=== PATIENT | female | born 1975 | race Caucasian/White ===

== ENCOUNTER → 2018-11-19 | Outpatient (CLI) | payer BC, SELFPAY ==
--- NOTE | 2018-11-19 12:41 | BI_ITS ---
MAMMOGRAPHY - BILATERAL DIAGNOSTIC REASON FOR EXAM: Female, 42 years old. Remote left excisional breast biopsy. PERTINENT HISTORY: Aunt with breast cancer. TECHNIQUE: Digital bilateral breast ellen (3D mammographic acquisition) in the CC and MLO projections. 2-D mediolateral oblique (MLO) and craniocaudad (CC) views of both breasts were obtained. CAD: Full Field Digital Mammography with Computer Added Detection was performed. COMPARISON: Comparison is made with prior outside examination dated December 03, 2006. FINDINGS: Breast Composition: The breasts are heterogeneously dense, which may obscure small masses. There are no dominant masses or suspicious calcifications. A tissue clip marker is seen in the deep inferior slightly medial aspect of the left breast. No other significant abnormalities are identified. There has been no significant change since the prior study. BI/SCREEN MAMM (CAD) W/ELLEN BILAT IMPRESSION: Stable bilateral diagnostic mammogram. One year follow-up recommended. (A) ASSESSMENT CATEGORY: BIRADS Category 2: Benign. A letter regarding these results will be sent to the patient by the facility within 30 days. Approximately 10% of breast cancers are not detected by mammography. A normal mammogram should not delay biopsy of a clinically suspicious abnormality. Electronically Signed: Anthony Salas, at 14:35 EDT , Service support ,
== END | disposition home or self-care (01) ==
LOC: OPBI 12:38
PROVIDERS: Family Provider Internal Medicine; PCP Internal Medicine; Referring Provider Nurse Practitioner; Visit Provider Nurse Practitioner
DX: Z12.31 Encounter for screening mammogram for malignant neoplasm of breast (principal)
CPT/HCPCS: 77063; 77067

== ENCOUNTER 2021-06-16 09:45 | Outpatient (CLI) | payer SELFPAY ==
[2021-06-16 09:55] VITALS: BP 144/91; PULSE 77; RESP 16; TEMP 36.9; O2SAT 100; BMI 33.9
[2021-06-16] MEDS: 0.9% Saline Lock 10 ML Syringe IV (10:14)
[2021-06-16 10:44] VITALS: BP 127/77; PULSE 60; RESP 16; TEMP 37; O2SAT 100
[2021-06-16 11:44] VITALS: BP 127/90; PULSE 57; RESP 16; TEMP 36.9; O2SAT 99
== END 2021-06-16 11:45 | disposition home or self-care (01) ==
LOC: MS3OUT 09:46 → MS3 09:47
PROVIDERS: PCP Internal Medicine; Referring Provider Nurse Practitioner Adult Health; Visit Provider Nurse Practitioner Adult Health
DX: Z23 Encounter for immunization (principal); U07.1 COVID-19
CPT/HCPCS: J7050; M0245; Q0245; A4216

== ENCOUNTER → 2023-08-13 | Outpatient (CLI) | payer OTHER, SELFPAY ==
--- NOTE | 2023-08-13 07:03 | BI_ITS ---
MAMMOGRAPHY - BILATERAL SCREENING REASON FOR EXAM: Female, 47 years old. Routine annual screening examination. PERTINENT HISTORY: TECHNIQUE: Digital bilateral breast ellen (3D mammographic acquisition) in the CC and MLO projections. 2-D mediolateral oblique (MLO) and craniocaudad (CC) views of both breasts were obtained. CAD: Full Field Digital Mammography with Computer Added Detection was performed. COMPARISON: None. FINDINGS: Breast Composition: The breasts are extremely dense, which lowers the sensitivity of mammography. There are no dominant masses or suspicious calcifications. Indication: As was again seen in the inferior slightly medial aspect of the left breast. A tissue clip marker is also seen in the axillary region of the right breast. No other significant abnormalities are identified. There has been no significant change since the prior study. BI/SCRN MAMM (CAD)W/ELLEN BILAT IMPRESSION: Stable bilateral screening mammogram. Yearly follow-up mammogram recommended. (A) ASSESSMENT CATEGORY: BIRADS Category 2: Benign. A letter regarding these results will be sent to the patient by the facility within 30 days. Approximately 10% of breast cancers are not detected by mammography. A normal mammogram should not delay biopsy of a clinically suspicious abnormality. [id number] Electronically Signed: Anthony Salas MD at 13:47 EST ,
--- OUTSIDE RECORDS SUMMARY | 2023-08-13 07:19 | XMS RPT_ITS | CCD ---
Author Name Unknown Address [address] [place] [address] Organization [facility] Care Team Providers Care Music Box Mechanic Name Role Phone Bailey Singleton Attending Unavailable Bailey Singleton Referring Unavailable Bailey Singleton Consulting Unavailable Bailey Singleton Unavailable Matt Balderas Unavailable Unavailable Slarb, Bette Unavailable Unavailable Ciesa Bailey MCCRARY E Unavailable Lynn PIANO REFINISHER, Aleida Unavailable Unavailable Matt Meeks LPN Unavailable Unavailable Slarb PIANO REFINISHER, Bette Unavailable Unavailable Unavailable Unavailable Unavailable Primary Care Provider Unavailabl e Allergies Allergy Classification Reported Allergen(s) Allergy Type Date of Onset Reaction(s) Facility (15 sources) Dust; Translations: [Dust] allergy to substance 7 Itching [facility] Work Phone: (10 sources) Cat Propensity to adverse reactions 7 Itching [facility] Work Phone: Medications Current Medications Medication Drug Class(es) Dates Sig (Normalized) Sig (Original) levonorgestrel 0.269708 mg/hr intrauterine system (10 sources) Progestin, Progestin-containi ng Intrauterine Device Start: 11-16-2019 End: 11-14-2024 levonorgestrel (MIRENA) 20 mcg/24 hours (5 yrs) 52 mg IUD Indications: Encounter for IUD insertion 1 Each by INTRAUTERINE route as directed. 1 Each 0 11/16/2019 11/14/2024 Active Completed/Discontinued Medications Medication Drug Class(es) Dates Sig (Normalized) Sig (Original) [id number] 200 actuat albuterol 0.09 mg/actuat metered dose inhaler (14 sources) beta2-Adrenergic Agonist Start: 06-14-2021 take 2 puff(s) by inhalation three to four times daily as needed Ventolin HFA 108 (90 Base) MCG/ACT Inhalation Aerosol Solution 2 (two) Puff three to four times a day as needed for 0 days Quantity: 1 {Each} Refills: 0 Ordered: 14-Jun-2021 Matt Meeks LPN Start : 14-Jun-2021 Active Comments: Medication taken as needed. Problems Active Problems Problem Classification Problem Date Documented Da te Episodic/Chronic Administrative/social admission (5 sources) Medical examinations/repo rts status; Translations: [Patient encounter status] Resolved: 12-01-2008 05-03-2015 Episodic Disorders of lipid metabolism (4 sources) Hypercholesterole guillermo; Translations: [Hypercholesterem ia] 10-28-2018 Chronic Fever of unknown origin (10 sources) Fever; Translations: [Fever] Resolved: 12-01-2008 04-23-2017 Episodic Past or Other Problems Problem Classification Problem Date Documented Da te Episodic/Chronic Acute bronchitis (5 sources) Acute bronchitis; Translations: [Acute bronchitis] Resolved: 04-23-2017 10-22-2018 Episodic Asthma (10 sources) Asthma; Translations: [Acute exacerbation of asthma] Resolved: 04-23-2017 10-22-2018 Chronic Results Test Name Value Interpretation Reference Range Facil ity Vital Signs Date Time Vital Sign Value Performing Clinician Facility 01-05-2022 09:03-0400 Body height 167.6 cm Chintan Toledo MD Work Phone: [facility] 01-05-2022 09:03-0400 Body temperature 97 [degF] Chintan Toledo MD Work Phone: [facility] 01-05-2022 09:03-0400 Body weight 100.7 kg Chintan Toledo MD Work Phone: [facility] 01-05-2022 09:03-0400 Diastolic blood pressure 76 mm[Hg] Chintan Toledo MD Work Phone: [facility] 01-05-2022 09:03-0400 Heart rate 91 /min Chintan Toledo MD Work Phone: [facility] 01-05-2022 09:03-0400 SaO2% (BldA) [Mass fraction] 100 % Chintan Toledo MD Work Phone: [facility] 01-05-2022 09:03-0400 Systolic blood pressure 104 mm[Hg] Chintan Toledo MD Work Phone: [facility] 12-26-2021 14:22-0400 Body height 167.6 cm Chintan Toledo MD Work Phone: [facility] 12-26-2021 14:22-0400 Body temperature 99.19 [degF] Chintan Toledo MD Work Phone: [facility] 12-26-2021 14:22-0400 Body weight 103.42 kg Chintan Toledo MD Work Phone: [facility] 12-26-2021 14:22-0400 Diastolic blood pressure 80 mm[Hg] Chintan Toledo MD Work Phone: [facility] 12-26-2021 14:22-0400 Heart rate 92 /min Chintan Toledo MD Work Phone: [facility] 12-26-2021 14:22-0400 SaO2% (BldA) [Mass fraction] 100 % Chintan Toledo MD Work Phone: [facility] 12-26-2021 14:22-0400 Systolic blood pressure 121 mm[Hg] Chintan Toledo MD Work Phone: [facility] 11-17-2021 10:02-0400 Body height 167.6 cm Sonya Sequeira APRN.MACHINE PECAN PICKER Work Phone: [facility] 11-17-2021 10:02-0400 Body weight 100.7 kg Sonya Sequeira APRN.MACHINE PECAN PICKER Work Phone: [facility] 11-17-2021 10:02-0400 Diastolic blood pressure 76 mm[Hg] Sonya Sequeira APRN.MACHINE PECAN PICKER Work Phone: [facility] 11-17-2021 10:02-0400 Systolic blood pressure 118 mm[Hg] Sonya Sequeira APRN.MACHINE PECAN PICKER Work Phone: [facility] 06-13-2021 09:36-0500 Body height 168.28 cm Aleida Bailey HOWARD [facility] Work Phone: Encounters Encounter Date Encounter Type Care Provider Facility Start: 02-12-2022 Telephone encounter Rosio Lepe RN Work Phone: Mammography Procedures Date Procedure Procedure Detail Performing Clinician Start: 01-02-2022 Diagnostic mammography computer-aided detcj uni Chintan Toledo MD Work Phone: Start: 01-01-2022 US BREAST BIOPSY RIGHT (POC) SURG USE ONLY Chintan Toledo MD Work Phone: Start: 12-20-2021 Us breast uni real time with image limited Sonya Sequeira APRN.MACHINE PECAN PICKER Work Phone: Start: 12-20-2021 End: 12-20-2021 Digital breast tomosynthesis bilateral Sonya Sequeira APRN.MACHINE PECAN PICKER Work Phone: Start: 06-14-2021 End: 06-14-2021 Virtual Office Visit Comments: See Note; NOTES: [facility] [address] [place] [address] OFFICE VISIT Date of Service: 06/14/21 MR#: [id number] Acct: [id number] Patient: JESSICA ROSALES Rep #: [id number] : 1975 Provider: SLIM gutierrez Age/Sex: 45/F Location: [facility] Status: Signed Intake Intake Visit Reasons: COVID-19 Allergies No Known Allergies Allergy (Verified 06/14/21 16:18) PFSH Social History Smoking Status: Former smoker HPI HPI Details: Patient was informed that this visit will be billed to patient. This visit was conducted during COVID-19 pandemic. Statement read to the patient: This telehealth visit is being offered during our stay at home measures in response to the pandemic. It is subject to an office visit charge. There are also charges for the monoclonal antibody infusion which may or may not be covered by your insurance. The patient consents to continue. Symptom onset occurred: 06/09/21 Positive COVID-19 test occurred: 06/12/21 COVID vaccine administered: yes, Moderna on oxygen or needed to titrate up? NO COVID + test date: 06/12/21 @ [facility] Sx Onset: 06/09/21 Sx: cough, nasal and chest congestion, fever, body aches, SOB, fatigue, headache Age: 45 yrs Wt 200 Ht 5' 6 BMI 32.3 O2: No Vaccine: Moderna x2 Qualifier: Asthma with inhaler use, BMI 32,3 The FDA has authorized the emergency use of monoclonal antibody treatment (bamlanivimab/etesevimab or casirivimab/imdevimab) for mild to moderate COVID-19 in adults and pediatric patients with positive results of direct SARS-Cov-2 viral testing ages 12 and older, at least 40 kg, who are at high risk for progressing to severe COVID-19 and or hospitalization. The significant known and potential risks (allergic reactions, worsening of symptoms after treatment, or side effects from injection including brief pain, bleeding, bruising of the skin, soreness, swelling, possible infection at the infusion site) and benefits (decrease chance of progression to severe COVID-19) of a monoclonal antibody infusion, and the extent to which such potential risks and benefits are unknown. Note that worsening symptoms after treatment may occur but it is unknown whether these symptoms are related to treatment or are due to the progression of COVID-19. Worsening symptoms may include: fever, difficulty breathing, rapid or slow heart rate, tiredness, weakness or confusion. If these symptoms occur, patients are encouraged to seek immediate medical attention. These treatments are still being studied, all possible side effects may not be listed or known at this time. Patients treated with monoclonal antibody infusion should continue to self-isolate and use infection control measures (such as wear mask, isolate, social distance, avoid sharing personal items, clean and disinfect high touch surfaces, and frequent handwashing) according to the CDC guidelines. The fact sheet for patients, parents and caregivers will be provided prior to the administration of the medication. No drugs are approved by the FDA at this time to treat outpatients with mild or moderate symptoms of COVID-19. In addition to IV monoclonal antibodies, there are oral medications that have received authorization from the FDA to treat [id number]-[id number] COVID-19 in patients at high risk for progression to severe COVID-19. These medications may not be appropriate for all patients and available drug supply may be limited. However, these oral medications may be more effective against the omicron variant. The following (is following appropriate here it should it be the information contained in this documentation) information was communicated to the patient or caregiver: Monoclonal antibody infusion for COVID-19 is not an FDA approved drug. The FDA has authorized the emergency use of monoclonal antibody therapy. The patient had the option to refuse or accept treatment with monoclonal antibody therapy. The patient was informed that the number of people treated with monoclonal antibody therapy at this time is small. The potential benefits and the potential risks of monoclonal antibody therapy are not fully known. Potential benefits of monoclonal antibody include a reduced risk of progressing to severe COVID-19 infection. Potential risks or side effects of monoclonal antibody therapy include allergic reactions, side effects from injection including brief pain, bleeding, bruising of the skin, soreness, swelling, possible infection at the infusion site and worsening of symptoms. Due to the changes in the virus that causes COVID-19, some monoclonal antibody treatments may not be effective for all forms of the virus (known as variants). This includes the omicron variant. The patient stated understanding of this information communicated and wished to proceed with monoclonal antibody infusion therapy. The patient states understanding of this information communicated and wishes to proceed with monoclonal antibody infusion therapy. Patient agrees to receive either balanivimab/etesvimab or casirivimab/imdevimab upon availability. ROS Const Constitutional: Positive for body ache, fatigue, fever(s), headache(s), decreased energy and malaise ENT ENT: Positive for nasal congestion and headache(s) Resp Respiratory: Positive for cough, chest congestion and shortness of breath Neuro Neurology: Positive for headache(s) Endo Endocrine: Positive for fatigue Exam Const General: cooperative and no acute distress Resp Effort Inspection: normal respiratory effort and able to speak in complete sentences Neuro General: patient alert, patient awake and patient oriented x3 Cognition: normal cognition Speech: speech normal Psych Mental Status: mental status grossly normal Mood: congruent mood Attitude: cooperative Thought Process: normal Thought Content: normal Judgment: judgment good Details: Details:: Exam was limited due to phone visit with no video. Quality Reporting Tobacco Screening ([facility] 138) Smoking Status: Former smoker Coding Level of Care Code New Pt Level 1 Telephone Patient Type New History Problem Focused Exam Problem Focused Medical Decision Making Straight Forward Diagnoses COVID-19 U07.1 Asthma J45.909 Time Spent (min) 10 Comment 27787 Assessment and Plan Assessment and Plan (1) COVID-19: Status: Acute Plan - Deyanira Odom NP, PACKING AND STAMPING MACHINE OPERATOR-C: The patient remains appropriate for the Monoclonal Antibody Infusion. The patient states understanding of this information communicated and wishes to proceed with monoclonal antibody infusion therapy. Patient agrees to receive either balanivimab/etesvimab or casirivimab/imdevimab upon availability. Patient verbalized understanding of education and instructions. Questions and concerns were answered and addressed. (2) Asthma: Status: Acute 06/14/21 1629 <Electronically signed by Deyanira Odom NP PACKING AND STAMPING MACHINE OPERATOR-C> Date Deyanira Odom NP PACKING AND STAMPING MACHINE OPERATOR-C Cosigner Signature: Date (if applicable) CC: DO Bailey Buitrago MACHINE PECAN PICKER Work Phone: Start: 11-19-2018 End: 11-19-2018 SCREEN MAMM (CAD) W/ELLEN BILAT Comments: See Note; NOTES: [facility] Imaging Services [address] [place] [id number] SCREEN MAMM (CAD) W/ELLEN BILAT MR#: [id number] Acct: [id number] Name: JESSICA ROSALES Rep #: [id number] : 1975 F 42 From: Anthony Salas MD PCP: Lynsey Hardin DO Status: [facility] Study: SCREEN MAMM (CAD) W/ELLEN BILAT Date of Exam: 11/19/18 Exam# [id number] Ordering Dr: Bailey Singleton NP-Gloria MAMMOGRAPHY - BILATERAL DIAGNOSTIC REASON FOR EXAM: Female, 42 years old. Remote left excisional breast biopsy. PERTINENT HISTORY: Aunt with breast cancer. TECHNIQUE: Digital bilateral breast ellen (3D mammographic acquisition) in the CC and MLO projections. 2-D mediolateral oblique (MLO) and craniocaudad (CC) views of both breasts were obtained. CAD: Full Field Digital Mammography with Computer Added Detection was performed. COMPARISON: Comparison is made with prior outside examination dated December 03, 2006. FINDINGS: Breast Composition: The breasts are heterogeneously dense, which may obscure small masses. There are no dominant masses or suspicious calcifications. A tissue clip marker is seen in the deep inferior slightly medial aspect of the left breast. No other significant abnormalities are identified. There has been no significant change since the prior study. BI/SCREEN MAMM (CAD) W/ELLEN BILAT IMPRESSION: Stable bilateral diagnostic mammogram. One year follow-up recommended. (A) ASSESSMENT CATEGORY: BIRADS Category 2: Benign. A letter regarding these results will be sent to the patient by the facility within 30 days. Approximately 10% of breast cancers are not detected by mammography. A normal mammogram should not delay biopsy of a clinically suspicious abnormality. Electronically Signed: Anthony Salas, at 14:35 EDT , Service support , CC: THERON Singleton; Lynsey Hardin DO Cat Wagon Operator: Signed Bailey Singleton MACHINE PECAN PICKER Work Phone: Section - 2 Matt Balderas Section - 2 Aleida loera LPN Plan of Treatment Date Care Activity Detail Author Start: 07-06-2024 HPV TESTING HPV TESTING [facility] Start: 07-06-2024 PAP TESTING PAP TESTING [facility] Start: 12-20-2022 Mammography MAMMOGRAM [facility] Start: 02-15-2022 Influenza vaccination [facility] Start: 06-13-2021 Procedure Education Eprescribed prescriptions (G8553) [facility] Work Phone: Start: 06-12-2021 Procedure Education Eprescribed prescriptions (G8553) [facility] Work Phone: Start: 06-12-2021 Provider Instructions for Treatment Follow up tomorrow, front end technician to make virtual with [facility] tomorrow [facility] Work Phone: Start: 06-12-2021 Iaadiadoo influenza 2019 Novel Coronavirus (COVID-19), ANAND (78421) [facility] Work Phone: Start: 10-28-2018 Lipid panel LIPID PANEL (63593) [facility] Work Phone: Start: 10-22-2018 Gluc bld gluc mntr dev cleared fda spec home use Blood Glucose , Office (73191) [facility]; [facility] Work Phone: Start: 10-22-2018 Glucose mass conc [facility] Work Phone: Start: 10-22-2018 Hemoglobin A1c/Hemoglobin.total mass fraction (Bld) [facility] Work Phone: Start: 10-22-2018 Hemoglobin glycosylated a1c HgA1C , Office (63171) [facility]; [facility] Work Phone: Start: 10-22-2018 Lipid panel LIPID PANEL (41546) [facility] Work Phone: Start: 10-22-2018 Procedure Education Eprescribed prescriptions (G8553) [facility] Work Phone: Start: 10-22-2018 Provider Instructions for Treatment Follow up as needed [facility] Work Phone: Start: 2017 Mammography MAMMOGRAM [facility] Start: 04-23-2017 Procedure Education Eprescribed prescriptions (G8553) [facility] Work Phone: Start: 04-23-2017 Provider Instructions for Treatment Follow up in 1 year or as needed [facility] Work Phone: Start: 04-23-2017 Comprehensive metabolic panel Metabolic Panel, Comprehensive (04697) [facility] Work Phone: Start: 04-23-2017 Cholesterol mass conc CHOLESTEROL TOTAL, SERUM (60880) [facility] Work Phone: Start: 04-23-2017 Cholesterol serum/whole blood total CHOLESTEROL TOTAL, SERUM (48575) [facility]; [facility] Work Phone: Start: 12-07-2015 Procedure Education Eprescribed prescriptions (G8553) [facility] Work Phone: Start: 12-07-2015 Provider Instructions for Treatment Follow up if no improvement or if symptoms worsen [facility] Work Phone: Start: 12-07-2015 Lipid panel Lipid Panel (80568) [facility] Work Phone: Start: 12-07-2015 Blood count complete auto&auto difrntl wbc CBC, Platelets & Auto Diff (99668) [facility] Work Phone: Start: 12-07-2015 Comprehensive metabolic panel Metabolic Panel, Comprehensive (59827) [facility] Work Phone: Start: 03-16-2008 Skin test tuberculosis intradermal SKIN TEST INTRADERMAL TB (16949) [facility] Work Phone: Payers Date Payer Category Payer Unknown 2020 Unknown MMO MMO [employer] [id number] 2020-Present [phone] [address] [place] [address] PPO [id number] 2016 Unknown [id number] 2008 Private Health Insurance [id number] 1975 Unknown [id number] Unknown [id number] Social History Date Type Detail Facility Alcohol Use [facility] Work Phone: Medical Equipment Procedure Code Equipment Code Equipment Origin al Text Equipment Identifier Dates Stereo Breast Clip [id number] Start : 02-06-2022 Clinical Notes 10-05-2011 to 02-12-2022 Telephone Encounter - Rosio Lepe RN - 02/12/2022 3:48 PM EDTTelephone Encounter - Bailey Leonardo PIANO REFINISHER - 01/05/2022 9:39 AM EDTChintan Toledo MD - 01/05/2022 9:12 AM EDTPatient Instructions Note Date & Type Note Facility 02-12-2022 Miscellaneous Notes Called patient to notify the breast pathology results were benign per Dr. Pollock. Informed patient to continue with annual screening. Patient verbalized understanding. documented in this encounter [facility] 02-06-2022 Note HNO ID: [id number] Author: RT Enrike(R) Service: ? Author Type: Record Pressman Type: Patient Education Filed: 02/06/2022 11:45 AM Note Text: Patient given post procedure instructions [facility] 01-24-2022 Note HNO ID: [id number] Author: Park [place], [employer] Service: ? Author Type: Record Pressman Type: Patient Education Filed: 01/24/2022 10:48 AM Note Text: Written post procedure instructions were given to the patient. [facility] 01-05-2022 Note HNO ID: [id number] Author: Chintan Toledo MD Service: ? Author Type: Physician Type: Progress Notes Filed: 01/05/2022 10:01 AM Note Text: Subjective: Patient underwent an ultrasound-guided needle core biopsy of her right breast on 01/02/2022. This was done at the 12 o'clock position +10 cm. This pathology report came back as benign. When I sent her down to get her post biopsy mammogram films they said the clip was not in the right placement I then obtained an ultrasound which did show that the lesion in the ultrasound that was questionable was biopsied appropriately however she had another lesion within the mammogram itself that needed to be biopsied. Subjective:Blood pressure 104/76, pulse 91, temperature 36.1 ?C (97 ?F), height 167.6 cm (5' 6 ), weight 100.7 kg (222 lb), last menstrual period 12/27/2014, SpO2 100 %. Biopsy site is clean without signs of infection Assessment: Abnormal mammogram Plan: I am going to get her scheduled to undergo a stereotactic right breast biopsy in the near future. [facility] 01-05-2022 Miscellaneous Notes Spoke to Dr Reid office at [place] to have them call and schedule patient for a stereotactic right breast biopsy documented in this encounter [facility] 01-05-2022 History of Presen t illness Narrative Subjective: Patient underwent an ultrasound-guided needle core biopsy of her right breast on 01/02/2022. This was done at the 12 o'clock position +10 cm. This pathology report came back as benign. When I sent her down to get her post biopsy mammogram films they said the clip was not in the right placement I then obtained an ultrasound which did show that the lesion in the ultrasound that was questionable was biopsied appropriately however she had another lesion within the mammogram itself that needed to be biopsied. Subjective:Blood pressure 104/76, pulse 91, temperature 36.1 C (97 F), height 167.6 cm (5' 6 ), weight 100.7 kg (222 lb), last menstrual period 12/27/2014, SpO2 100 %. Biopsy site is clean without signs of infection Assessment: Abnormal mammogram Plan: I am going to get her scheduled to undergo a stereotactic right breast biopsy in the near future. documented in this encounter [facility] 01-03-2022 Note HNO ID: [id number] Author: RT Roselia(R) Service: ? Author Type: Record Pressman Type: Progress Notes Filed: 01/03/2022 2:43 PM Note Text: Radiology Service Progress Note PATIENT NAME: Jessica Rosales DATE OF SERVICE: January 03, 2022 TIME: 2:43 PM PATIENT IDENTITY VERIFICATION COMPLETED USING TWO (2) IDENTIFIERS: Name and Date of confirmed by patient verbally. FALL SCREENING: Has the patient had 2 falls in the last year or 1 fall with injury or currently using an Ambulatory Assistive Device (Walker, Cane, Wheelchair, Crutches, etc.)? No PATIENT GENDER DATA: Female. status: : No status: NO. PATIENT RELEVANT IMPLANT DATA REVIEWED: Not Applicable RADIOLOGY DEPARTMENT: Ultrasound PERIPHERAL IV DATA: Not applicable SIGNED BY: RT Roselia(R) January 03, 2022 2:43 PM [facility] 01-02-2022 Note HNO ID: [id number] Author: RT Quoc(Horacio) Service: ? Author Type: Technologist Type: Progress Notes Filed: 01/02/2022 7:55 AM Note Text: Radiology Service Progress Note PATIENT NAME: Jessica Rosales DATE OF SERVICE: January 02, 2022 TIME: 7:55 AM PATIENT IDENTITY VERIFICATION COMPLETED USING TWO (2) IDENTIFIERS: Name and Date of confirmed by patient verbally. FALL SCREENING: Has the patient had 2 falls in the last year or 1 fall with injury or currently using an Ambulatory Assistive Device (Walker, Cane, Wheelchair, Crutches, etc.)? No PATIENT GENDER DATA: Female. status: : No status: NO. PATIENT RELEVANT IMPLANT DATA REVIEWED: Not Applicable RADIOLOGY DEPARTMENT: Mammography PERIPHERAL IV DATA: Not applicable SIGNED BY: RT Quoc(R) January 02, 2022 7:55 AM [facility] 01-02-2022 History of Presen t illness Narrative Radiology Service Progress Note PATIENT NAME: Jessica Rosales DATE OF SERVICE: January 02, 2022 TIME: 7:55 AM PATIENT IDENTITY VERIFICATION COMPLETED USING TWO (2) IDENTIFIERS: Name and Date of confirmed by patient verbally. FALL SCREENING: Has the patient had 2 falls in the last year or 1 fall with injury or currently using an Ambulatory Assistive Device (Walker, Cane, Wheelchair, Crutches, etc.)? No PATIENT GENDER DATA: Female. status: : No status: NO. PATIENT RELEVANT IMPLANT DATA REVIEWED: Not Applicable RADIOLOGY DEPARTMENT: Mammography PERIPHERAL IV DATA: Not applicable SIGNED BY: RT Quoc(R) January 02, 2022 7:55 AM documented in this encounter [facility] 01-01-2022 Note HNO ID: [id number] Author: Chintan Toledo MD Service: ? Author Type: Physician Type: Progress Notes Filed: 01/02/2022 1:57 PM Note Text: Preoperative diagnosis: Abnormal mammogram to right breast Postoperative diagnosis: The same Procedure: Ultrasound-guided needle core biopsy of abnormal mammogram to right breast Surgeon: Tre Procedure: Ultrasound of the right breast at the 12 o'clock position approximately 10 cm from the nipple revealed the lesion in question. I prepped the skin with Betadine. I injected 1% lidocaine plain. Under ultrasound guidance I injected local down to the lesion. A skin graham was made. Under ultrasound guidance 2 needle core biopsies were obtained of this lesion. Under ultrasound guidance a small titanium clip was placed in the biopsy cavity. Sterile dressings were applied and the patient tolerated the procedure well postoperative mammogram was obtained. [facility] 01-01-2022 Note HNO ID: [id number] Author: Bailey Leonardo LPN Service: ? Author Type: LICENSED NURSE Type: Progress Notes Filed: 01/02/2022 1:57 PM Note Text: UNIVERSAL PROTOCOL / SAFETY CHECKLIST Procedure to be Performed: Ultra sound guided right breast biopsy Sign In: A Moment of CARE was completed. Personnel directly involved with the procedure wore the appropriate PPE (Personal Protective Equipment). Patient/Surrogate Stated/Verified: PATIENT VERIFIED(optional for EMERGENT procedures): Patient name, Date of , Relevant allergies and The intended procedure Time Out Communication: Intended patient and procedure match the source documents. Consent documented and matches the intended procedure. Medications required for procedure verified. No fire risk assessment and interventions applicable. Implant(s) inserted: Correct implant(s) confirmed including size and side. and Expiration date(s) reviewed. Sign Out: SIGN OUT (optional for EMERGENT procedures): All specimen containers correctly labeled. Post-procedure follow-up management communicated and Plan of Care Visit completed when applicable. Bailey Leonardo LPN [facility] 01-01-2022 Instructions Bailey Leonardo LPN - 01/01/2022 4:13 PM EDT The following instructions are important for you related to your office visit today with the [facility]. Instructions After OFFICE BASED BREAST BIOPSY Please do not take aspirin or other blood thinners for the next few days. After the procedure, Steri-Strips and a dressing will be placed on your small incision. The dressing may be removed in two to three days after the procedure. The Steri-Strips should be left in place until they fall off. If you have bleeding from the biopsy site, hold pressure with a clean gauze. If the bleeding continues, contact our office immediately. I recommend taking Advil or Tylenol for the discomfort. You should wear a comfortable but somewhat tight fitting bra. If you have significant bruising, an ice pack may improve your discomfort. Dr Toledo to call patient with results If you note any additional difficulties, questions, or concerns, you should contact our office immediately @ [phone] and ask to be transferred to the General Surgery department. documented in this encounter [facility] 01-01-2022 History of Presen t illness Narrative Preoperative diagnosis: Abnormal mammogram to right breast Postoperative diagnosis: The same Procedure: Ultrasound-guided needle core biopsy of abnormal mammogram to right breast Surgeon: Tre Procedure: Ultrasound of the right breast at the 12 o'clock position approximately 10 cm from the nipple revealed the lesion in question. I prepped the skin with Betadine. I injected 1% lidocaine plain. Under ultrasound guidance I injected local down to the lesion. A skin graham was made. Under ultrasound guidance 2 needle core biopsies were obtained of this lesion. Under ultrasound guidance a small titanium clip was placed in the biopsy cavity. Sterile dressings were applied and the patient tolerated the procedure well postoperative mammogram was obtained. UNIVERSAL PROTOCOL / SAFETY CHECKLIST Procedure to be Performed: Ultra sound guided right breast biopsy Sign In: A Moment of CARE was completed. Personnel directly involved with the procedure wore the appropriate PPE (Personal Protective Equipment). Patient/Surrogate Stated/Verified: PATIENT VERIFIED(optional for EMERGENT procedures): Patient name, Date of , Relevant allergies and The intended procedure Time Out Communication: Intended patient and procedure match the source documents. Consent documented and matches the intended procedure. Medications required for procedure verified. No fire risk assessment and interventions applicable. Implant(s) inserted: Correct implant(s) confirmed including size and side. and Expiration date(s) reviewed. Sign Out: SIGN OUT (optional for EMERGENT procedures): All specimen containers correctly labeled. Post-procedure follow-up management communicated and Plan of Care Visit completed when applicable. Bailey Leonardo LPN documented in this encounter [facility] 12-26-2021 Note HNO ID: [id number] Author: Chintan Toledo MD Service: ? Author Type: Physician Type: Progress Notes Filed: 12/26/2021 2:42 PM Note Text: HISTORY AND PHYSICAL - BREAST COMPLAINT Jessica Tanner 1975 REFERRING PHYSICIAN: Sonya Sequeira APRN.MACHINE PECAN PICKER CHIEF COMPLAINT: Abnormal mammogram (primary encounter diagnosis) HPI: The patient is a 46 year old female with a complaint of an abnormal mammogram. The patient had a mammogram with ultrasound on 12/20/20 which demonstrated a right breast lesion at the 12 o'clock position +10.: The patient denies a history of breast masses. She does perform a self breast exam routinely. She notes no skin changes. She denies nipple discharge. She notes no axillary masses. She notes no family history of breast problems. She notes no significant breast trauma or breast difficulties in the past. The patient is being seen by me today at the request of Dr. Sequeira for my opinion and advice regarding Abnormal mammogram (primary encounter diagnosis). PAST MEDICAL HISTORY Diagnosis Date - Argueta's palsy 1992 - Unspecified asthma(493.90) PAST SURGICAL HISTORY Procedure Laterality Date - DELIVERY ONLY 2011 , low transverse - INSERTION OF IUD 11/16/2019 - STEREOTACTIC CORE BIOPSY 12/25/06 LEFT Current Outpatient Medications Medication Sig Dispense Refill - levonorgestrel (MIRENA) 20 mcg/24 hours (5 yrs) 52 mg IUD 1 Each by INTRAUTERINE route as directed. 1 Each 0 - MULTIVITAMIN ORAL Take by mouth. No current facility-administered medications for this visit. ALLERGIES: Cats and Dust PERSONAL HISTORY: Social History Tobacco Use - Smoking status: Never Smoker - Smokeless tobacco: Never Used Vaping Use - Vaping Use: Never used Substance Use Topics - Alcohol use: No - Drug use: No FAMILY HISTORY: FAMILY HISTORY Problem Relation Age of Onset - Hypertension Mother - Asthma Mother - other (Other) Mother kidney stones - COPD Mother former smoker - Hyperlipidemia Mother - Alcohol/Drug Father ETOH in remission - Arthritis Father - Stroke Maternal Grandmother - Emphysema Maternal Grandfather smoker - Colon Cancer Other MGAUNT REVIEW OF SYMPTOMS: The review of systems data was entered by the nurse and reviewed by dc Nursing Notes: Carri Syed 12/26/2021 2:27 PM Signed REVIEW OF SYSTEMS: General: The patient denies fatigue, denies weight loss, NOTES weight gain, denies feeling hot, and denies feelings of cold. Eyes: The patient denies glaucoma, denies eye injury/surgery, wears glasses or contacts. Ear/Nose/Throat: The patient NOTES allergies, NOTES hayfever, denies ear infections, and denies bloody noses. Cardiovascular: The patient denies chest pain, denies heart disease, denies high blood pressure,denies cardiac stent, denies prior heart attack, denies irregular heart beat, denies high cholesterol, denies poor circulation, denies heart failure, other cardiac issues, denies claudication, denies cold feet, denies peripheral arterial stent. Respiratory: The patient denies tuberculosis, denies pneumonia, denies frequent cough, denies pulmonary embolism, denies shortness of breath, and denies coughing up blood. Gastrointestinal: The patient denies difficulty swallowing, denies acid reflux, denies ulcers, denies vomiting, denies jaundice/hepatitis, denies gallbladder problems, denies black or tarry stools, denies hemorrhoids, denies bleeding from rectum, denies diverticulitis, NOTES constipation, denies diarrhea, denies loss of stool control, and denies hernias. Kidney/Bladder: The patient denies kidney stones, denies urine infections, and denies bloody urine. Skin: The patient denies a history of skin cancer, denies bleeding/changing moles, and denies a history of skin rash. Neurologic: The patient denies a history of epilepsy/convulsions, denies headaches, denies head/spinal injuries, and denies stroke/TIA. Psychiatric: The patient denies psychiatric medications, denies depression, and denies voices, denies substance abuse. Endocrine: The patient denies thyroid disorders, denies diabetes, and denies hormonal problems. Hematologic: The patient denies a history of bruising, denies bleeding, and denies anemia, denies blood clots. Infections: The patient NOTES a history of measles and mumps, denies rheumatic fever, and denies sexually transmitted diseases. Musculoskeletal: The patient denies back pain/injury, denies back problems, denies sciatica, denies knee/foot trouble, denies arthritis, or denies gout. When was patient's last Mammogram screening? 12/20/2021 Last Colonoscopy: None Carri Syed PHYSICAL EXAMINATION: General: The patient is 46 year old female, well nourished, well hydrated in no acute distress. The patient is oriented to time, place, and person. VITALS: Blood pressure 121/80, pulse 92, temperature 37.3 ?C (99.2 ?F), height 167.6 cm (5' 6 ), weight 103.4 kg (more content not included)... [facility] 12-26-2021 History of Presen t illness Narrative HISTORY AND PHYSICAL - BREAST COMPLAINT Jessica Tanner 1975 REFERRING PHYSICIAN: Sonya Sequeira APRN.MACHINE PEC[employer] PICKER CHIEF COMPLAINT: Abnormal mammogram (primary encounter diagnosis) HPI: The patient is a 46 year old female with a complaint of an abnormal mammogram. The patient had a mammogram with ultrasound on 12/20/20 which demonstrated a right breast lesion at the 12 o'clock position +10.: The patient denies a history of breast masses. She does perform a self breast exam routinely. She notes no skin changes. She denies nipple discharge. She notes no axillary masses. She notes no family history of breast problems. She notes no significant breast trauma or breast difficulties in the past. The patient is being seen by me today at the request of Dr. Sequeira for my opinion and advice regarding Abnormal mammogram (primary encounter diagnosis). PAST MEDICAL HISTORY Diagnosis Date Argueta's palsy 1992 Unspecified asthma(493.90) PAST SURGICAL HISTORY Procedure Laterality Date DELIVERY ONLY 2011 , low transverse INSERTION OF IUD 11/16/2019 STEREOTACTIC CORE BIOPSY 12/25/06 LEFT Current Outpatient Medications Medication Sig Dispense Refill levonorgestrel (MIRENA) 20 mcg/24 hours (5 yrs) 52 mg IUD 1 Each by INTRAUTERINE route as directed. 1 Each 0 MULTIVITAMIN ORAL Take by mouth. No current facility-administered medications for this visit. ALLERGIES: Cats and Dust PERSONAL HISTORY: Social History Tobacco Use Smoking status: Never Smoker Smokeless tobacco: Never Used Vaping Use Vaping Use: Never used Substance Use Topics Alcohol use: No Drug use: No FAMILY HISTORY: FAMILY HISTORY Problem Relation Age of Onset Hypertension Mother Asthma Mother other (Other) Mother kidney stones COPD Mother former smoker Hyperlipidemia Mother Alcohol/Drug Father ETOH in remission Arthritis Father Stroke Maternal Grandmother Emphysema Maternal Grandfather smoker Colon Cancer Other MGAUNT REVIEW OF SYMPTOMS: The review of systems data was entered by the nurse and reviewed by dc Nursing Notes: Carri Syed 12/26/2021 2:27 PM Signed REVIEW OF SYSTEMS: General: The patient denies fatigue, denies weight loss, NOTES weight gain, denies feeling hot, and denies feelings of cold. Eyes: The patient denies glaucoma, denies eye injury/surgery, wears glasses or contacts. Ear/Nose/Throat: The patient NOTES allergies, NOTES hayfever, denies ear infections, and denies bloody noses. Cardiovascular: The patient denies chest pain, denies heart disease, denies high blood pressure,denies cardiac stent, denies prior heart attack, denies irregular heart beat, denies high cholesterol, denies poor circulation, denies heart failure, other cardiac issues, denies claudication, denies cold feet, denies peripheral arterial stent. Respiratory: The patient denies tuberculosis, denies pneumonia, denies frequent cough, denies pulmonary embolism, denies shortness of breath, and denies coughing up blood. Gastrointestinal: The patient denies difficulty swallowing, denies acid reflux, denies ulcers, denies vomiting, denies jaundice/hepatitis, denies gallbladder problems, denies black or tarry stools, denies hemorrhoids, denies bleeding from rectum, denies diverticulitis, NOTES constipation, denies diarrhea, denies loss of stool control, and denies hernias. Kidney/Bladder: The patient denies kidney stones, denies urine infections, and denies bloody urine. Skin: The patient denies a history of skin cancer, denies bleeding/changing moles, and denies a history of skin rash. Neurologic: The patient denies a history of epilepsy/convulsions, denies headaches, denies head/spinal injuries, and denies stroke/TIA. Psychiatric: The patient denies psychiatric medications, denies depression, and denies voices, denies substance abuse. Endocrine: The patient denies thyroid disorders, denies diabetes, and denies hormonal problems. Hematologic: The patient denies a history of bruising, denies bleeding, and denies anemia, denies blood clots. Infections: The patient NOTES a history of measles and mumps, denies rheumatic fever, and denies sexually transmitted diseases. Musculoskeletal: The patient denies back pain/injury, denies back problems, denies sciatica, denies knee/foot trouble, denies arthritis, or denies gout. When was patient's last Mammogram screening? 12/20/2021 Last Colonoscopy: None Carri Syed PHYSICAL EXAMINATION: General: The patient is 46 year old female, well nourished, well hydrated in no acute distress. The patient is oriented to time, place, and person. VITALS: Blood pressure 121/80, pulse 92, temperature 37.3 C (99.2 F), height 167.6 cm (5' 6 ), weight 103.4 kg (228 lb), last menstrual period 12/27/2014, SpO2 100 %. Body mass index is 36.8 kg/m . HEENT: Normal cephalic, ataumatic, pupils are equally round, sclera are anicteric, mucous membranes are moist, oropharynx is clear. Neck has no masses, asymmetry or lymphadenopathy. Thyroid is unremarkable. Respiratory: Clear to auscultation and percussion. Normal respiratory excursion and pattern. Cardiac: Examination is regular rate and rhythm. Abdominal exam: Soft, nontender, with no palpable masses. No hepatosplenomegaly. No palpable hernias. Rectal exam: exam deferred Extremities: no clubbing, cyanosis or edema. No adenopathy. Breast: Visual inspection reveals no retractions, nipple inversion, or skin changes. Palpation of the right breast reveals no dominant or suspicious masses. Palpation of the left breast reveals no dominant or suspicious masses. Axillary exam demonstrates no suspicious masses in either the left or right axilla. There is no nipple discharge expressed from either the left or right breast. LABORATORY VALUES: As Noted RADIOLOGIC STUDIES: As Noted Assessment IMPRESSION: Abnormal mammogram (primary encounter diagnosis) PLAN: I plan to perform a ultrasound guided core biopsy of the right breast. The planned surgical procedure was discussed extensively with the patient. The risks, benefits, anticipated outcomes and possible complications were mentioned. My staff has also explained the procedure in understandable terms and the patient was given the option to take printed material concerning the planned procedure. The patient had the opportunity to ask questions concerning the planned procedure. The patient freely consents to the planned procedure. Diagnoses: (R92.8) Abnormal mammogram (primary encounter diagnosis) My findings have been communicated to Dr. Sequeira via shared medical record. This note will be forwarded to Dr. Yeboah primary care provider on file.. Return to Clinic: The patient is instructed to follow-up with me 1 week post operatively. Chintan Toledo III, MD documented in this encounter [facility] 12-26-2021 Nurse Note REVIEW OF SYSTEMS: General: The patient denies fatigue, denies weight loss, NOTES weight gain, denies feeling hot, and denies feelings of cold. Eyes: The patient denies glaucoma, denies eye injury/surgery, wears glasses or contacts. Ear/Nose/Throat: The patient NOTES allergies, NOTES hayfever, denies ear infections, and denies bloody noses. Cardiovascular: The patient denies chest pain, denies heart disease, denies high blood pressure,denies cardiac stent, denies prior heart attack, denies irregular heart beat, denies high cholesterol, denies poor circulation, denies heart failure, other cardiac issues, denies claudication, denies cold feet, denies peripheral arterial stent. Respiratory: The patient denies tuberculosis, denies pneumonia, denies frequent cough, denies pulmonary embolism, denies shortness of breath, and denies coughing up blood. Gastrointestinal: The patient denies difficulty swallowing, denies acid reflux, denies ulcers, denies vomiting, denies jaundice/hepatitis, denies gallbladder problems, denies black or tarry stools, denies hemorrhoids, denies bleeding from rectum, denies diverticulitis, NOTES constipation, denies diarrhea, denies loss of stool control, and denies hernias. Kidney/Bladder: The patient denies kidney stones, denies urine infections, and denies bloody urine. Skin: The patient denies a history of skin cancer, denies bleeding/changing moles, and denies a history of skin rash. Neurologic: The patient denies a history of epilepsy/convulsions, denies headaches, denies head/spinal injuries, and denies stroke/TIA. Psychiatric: The patient denies psychiatric medications, denies depression, and denies voices, denies substance abuse. Endocrine: The patient denies thyroid disorders, denies diabetes, and denies hormonal problems. Hematologic: The patient denies a history of bruising, denies bleeding, and denies anemia, denies blood clots. Infections: The patient NOTES a history of measles and mumps, denies rheumatic fever, and denies sexually transmitted diseases. Musculoskeletal: The patient denies back pain/injury, denies back problems, denies sciatica, denies knee/foot trouble, denies arthritis, or denies gout. When was patient's last Mammogram screening? 12/20/2021 Last Colonoscopy: None Carri Syed documented in this encounter [facility] 12-20-2021 Note HNO ID: [id number] Author: RT Roselia(R) Service: ? Author Type: Record Pressman Type: Progress Notes Filed: 12/20/2021 3:00 PM Note Text: Radiology Service Progress Note PATIENT NAME: Jessica Rosales DATE OF SERVICE: December 20, 2021 TIME: 3:00 PM PATIENT IDENTITY VERIFICATION COMPLETED USING TWO (2) IDENTIFIERS: Name and Date of confirmed by patient verbally. FALL SCREENING: Has the patient had 2 falls in the last year or 1 fall with injury or currently using an Ambulatory Assistive Device (Walker, Cane, Wheelchair, Crutches, etc.)? No PATIENT GENDER DATA: Female. status: : No status: NO. PATIENT RELEVANT IMPLANT DATA REVIEWED: Not Applicable RADIOLOGY DEPARTMENT: Ultrasound PERIPHERAL IV DATA: Not applicable SIGNED BY: RT Roselia(R) December 20, 2021 3:00 PM [facility] 12-20-2021 Note HNO ID: [id number] Author: Jose Hilario Service: ? Author Type: Record Pressman Type: Progress Notes Filed: 12/20/2021 1:43 PM Note Text: [facility] 12-20-2021 History of Presen t illness Narrative Radiology Service Progress Note PATIENT NAME: Jessica Rosales DATE OF SERVICE: December 20, 2021 TIME: 3:00 PM PATIENT IDENTITY VERIFICATION COMPLETED USING TWO (2) IDENTIFIERS: Name and Date of confirmed by patient verbally. FALL SCREENING: Has the patient had 2 falls in the last year or 1 fall with injury or currently using an Ambulatory Assistive Device (Walker, Cane, Wheelchair, Crutches, etc.)? No PATIENT GENDER DATA: Female. status: : No status: NO. PATIENT RELEVANT IMPLANT DATA REVIEWED: Not Applicable RADIOLOGY DEPARTMENT: Ultrasound PERIPHERAL IV DATA: Not applicable SIGNED BY: RT Roselia(R) December 20, 2021 3:00 PM documented in this encounter [facility] 12-20-2021 History of Presen t illness Narrative documented in this encounter [facility] 11-17-2021 Note HNO ID: [id number] Author: Sonya Sequeira APRN.MACHINE PECAN PICKER Service: ? Author Type: Nurse Practitioner Type: Progress Notes Filed: 11/17/2021 10:49 AM Note Text: Jessica is a 45 year old who presents for an annual gynecologic exam with complaints, left breast pain. Pain for at least a week. Pain intermittent and feels like a pulled muscle. Did sleep in very uncomfortable bed for 3-4 days prior to onset of pain.No skin changes, no lump, no redness or nipple discharge. Does not drink caffeine. Has not changed bras and does not wear under wire. [facility] and [facility]. Maternal aunt with breast cancer diagnosed age 60. Menses: no menses - Mirena IUD. Contraception: Mirena IUD 11/16/2019 HPV vaccine: No Last Pap: 07/08/2019 normal HPV: 07/08/2019 negative History of abnormal pap: No Last mammogram: 2019 normal [facility] Sexually active: Yes History of STDS: None Patient concerns for STD exposure: No. Time with current partner: 21 years Pain with intercourse: No Postcoital bleeding: No OB History T2 L2 SAB0 IAB0 Ectopic0 Multiple0 Live Births2 Financial Sales Consult[employer] History LMP: 12/27/2014, IUD Age at Menarche: Age at First : Age at Menopause: Financial Sales Consultant History Comments: Sexual Activity: Yes; Male Contraception: I.U.D. PAST MEDICAL HISTORY Diagnosis Date - Argueta's palsy 1992 - Unspecified asthma(493.90) PAST SURGICAL HISTORY Procedure Laterality Date - DELIVERY ONLY 2011 , low transverse - INSERTION OF IUD 11/16/2019 - STEREOTACTIC CORE BIOPSY 12/25/06 LEFT FAMILY HISTORY Problem Relation Age of Onset - Hypertension Mother - Asthma Mother - other (Other) Mother kidney stones - Alcohol/Drug Father ETOH - Arthritis Father - Stroke Maternal Grandmother - Emphysema Maternal Grandfather - Colon Cancer Other MGAUNT SOCIAL HISTORY Social History Tobacco Use - Smoking status: Never Smoker - Smokeless tobacco: Never Used Vaping Use - Vaping Use: Never used Substance Use Topics - Alcohol use: No - Drug use: No REVIEW OF SYSTEMS Abdomen: No abdominal pain, nausea, vomiting, diarrhea, or constipation. No bloating, early satiety, indigestion, or increased flatulence. Bladder: No dysuria, gross hematuria, urinary frequency, urinary urgency, or incontinence. Breast: see HPI. No breast lumps, nipple d/c, overlying skin changes, redness or skin retraction. Allergies and current medication updated:Yes EXAM: BP 118/76 Ht 5' 6 (1.68m) Wt 222 lb (100.7kg) LMP 12/27/2014 BMI 35.85 kg/(m2). GENERAL: pleasant, female in no apparent distress HEENT: Normocephalic, atraumatic, mucus membranes moist and no lesions NECK: Supple, full range of motion, no adenopathy and thyroid normal DERMATOLOGY: Normal, without lesions, non-icteric and non-hirsute BREAST: soft, symmetric, no dominant mass, normal nipple-areolar complex, no lymphadenopathy, no nipple discharge . Tenderness with palpation to outer left breast. CHEST: Normal inspiratory effort ABDOMEN: soft, non-tender and no masses PELVIC: external genitalia normal, normal Bartholin's glands, urethra, Inland's glands, no vulvar lesions, no cervical lesions, good vaginal support, physiologic discharge present, normal appearing perineal body and perianal region, IUD strings visualized BIMANUAL: uterus normal size, shape and consistency, no adnexal masses and non-tender RECTOVAGINAL: deferred. NEURO: alert and oriented x3,exam grossly non-focal EXTREMITIES: mild non-pitting edema bilaterally L>R. Does have intermittent pedal edema as does mother and sisters. ASSESSMENT/PLAN: 1) Health maintenance: Pap done with HPV. Nutrition, exercise and routine health maintenance exams reviewed. Calcium/Vitamin D supplementation information provided. Pedal edema - plans to discuss with PCP 2. Pain of left breast - ICD9: 611.71, ICD10: N64.4 - US BREAST LTD LT - KATHERINE DIAGNOSTIC BILAT 3) Contraception: IUD. Contraceptive options reviewed and information provided. 4) STD screening: Declined STD check. 5) Follow up one year or sooner as needed Sonya Sequeira APRN.[facility] 11-17-2021 History of Presen t illness Narrative Jessica is a 45 year old who presents for an annual gynecologic exam with complaints, left breast pain. Pain for at least a week. Pain intermittent and feels like a pulled muscle. Did sleep in very uncomfortable bed for 3-4 days prior to onset of pain.No skin changes, no lump, no redness or nipple discharge. Does not drink caffeine. Has not changed bras and does not wear under wire. [facility] and [facility]. Maternal aunt with breast cancer diagnosed age 60. Menses: no menses - Mirena IUD. Contraception: Mirena IUD 11/16/2019 HPV vaccine: No Last Pap: 07/08/2019 normal HPV: 07/08/2019 negative History of abnormal pap: No Last mammogram: 2019 normal H Sexually active: Yes History of STDS: None Patient concerns for STD exposure: No. Time with current partner: 21 years Pain with intercourse: No Postcoital bleeding: No OB History T2 L2 SAB0 IAB0 Ectopic0 Multiple0 Live Births2 Financial Sales Consultant History LMP: 12/27/2014, IUD Age at Menarche: Age at First : Age at Menopause: Financial Sales Consultant History Comments: Sexual Activity: Yes; Male Contraception: I.U.D. PAST MEDICAL HISTORY Diagnosis Date Argueta's palsy 1992 Unspecified asthma(493.90) PAST SURGICAL HISTORY Procedure Laterality Date DELIVERY ONLY 2011 , low transverse INSERTION OF IUD 11/16/2019 STEREOTACTIC CORE BIOPSY 12/25/06 LEFT FAMILY HISTORY Problem Relation Age of Onset Hypertension Mother Asthma Mother other (Other) Mother kidney stones Alcohol/Drug Father ETOH Arthritis Father Stroke Maternal Grandmother Emphysema Maternal Grandfather Colon Cancer Other [place] SOCIAL HISTORY Social History Tobacco Use Smoking status: Never Smoker Smokeless tobacco: Never Used Vaping Use Vaping Use: Never used Substance Use Topics Alcohol use: No Drug use: No REVIEW OF SYSTEMS Abdomen: No abdominal pain, nausea, vomiting, diarrhea, or constipation. No bloating, early satiety, indigestion, or increased flatulence. Bladder: No dysuria, gross hematuria, urinary frequency, urinary urgency, or incontinence. Breast: see HPI. No breast lumps, nipple d/c, overlying skin changes, redness or skin retraction. Allergies and current medication updated:Yes EXAM: BP 118/76 Ht 5' 6 (1.68m) Wt 222 lb (100.7kg) LMP 12/27/2014 BMI 35.85 kg/(m^2). GENERAL: pleasant, female in no apparent distress HEENT: Normocephalic, atraumatic, mucus membranes moist and no lesions NECK: Supple, full range of motion, no adenopathy and thyroid normal DERMATOLOGY: Normal, without lesions, non-icteric and non-hirsute BREAST: soft, symmetric, no dominant mass, normal nipple-areolar complex, no lymphadenopathy, no nipple discharge . Tenderness with palpation to outer left breast. CHEST: Normal inspiratory effort ABDOMEN: soft, non-tender and no masses PELVIC: external genitalia normal, normal Bartholin's glands, urethra, Inland's glands, no vulvar lesions, no cervical lesions, good vaginal support, physiologic discharge present, normal appearing perineal body and perianal region, IUD strings visualized BIMANUAL: uterus normal size, shape and consistency, no adnexal masses and non-tender RECTOVAGINAL: deferred. NEURO: alert and oriented x3,exam grossly non-focal EXTREMITIES: mild non-pitting edema bilaterally L>R. Does have intermittent pedal edema as does mother and sisters. ASSESSMENT/PLAN: 1) Health maintenance: Pap done with HPV. Nutrition, exercise and routine health maintenance exams reviewed. Calcium/Vitamin D supplementation information provided. Pedal edema - plans to discuss with PCP 2. Pain of left breast - ICD9: 611.71, ICD10: N64.4 - US BREAST LTD LT - KATHERINE DIAGNOSTIC BILAT 3) Contraception: IUD. Contraceptive options reviewed and information provided. 4) STD screening: Declined STD check. 5) Follow up one year or sooner as needed Sonya Sequeira APRN.[facility] documented in this encounter [facility] documented as of this encounter (statuses as of 11/17/2021) [facility]20[facility] History of Past illness Narrative* Problem Noted Date Resolved Date Supervision of normal 10/05/2011 02/15/2012 Cervical polyp 10/05/2011 01/06/2015 Overview: RR- caused first trimester bleeding. No bleeding recently Previous section 07/13/20112011 Supervision of normal first 02/27/2007 10/27/2007 documented as of this encounter (statuses as of 12/21/2021) [facility] History of Past illness Narrative* Problem Noted Date Resolved Date Supervision of normal 10/05/2011 02/15/2012 Cervical polyp 10/05/2011 01/06/2015 Overview: RR- caused first trimester bleeding. No bleeding recently Previous section 07/13/20112011 Supervision of normal first 02/27/2007 10/27/2007 documented as of this encounter (statuses as of 12/21/2021) [address]20-2012 History of Past illness Narrative* Problem Noted Date Resolved Date Supervision of normal 10/05/2011 02/15/2012 Cervical polyp 10/05/2011 01/06/2015 Overview: RR- caused first trimester bleeding. No bleeding recently Previous section 07/13/20112011 Supervision of normal first 02/27/2007 10/27/2007 documented as of this encounter (statuses as of 12/26/2021) [address]20-2012 History of Past illness Narrative* Problem Noted Date Resolved Date Supervision of normal 10/05/2011 02/15/2012 Cervical polyp 10/05/2011 01/06/2015 Overview: RR- caused first trimester bleeding. No bleeding recently Previous section 07/13/20112011 Supervision of normal first 02/27/2007 10/27/2007 documented as of this encounter (statuses as of 01/02/2022) [address]20-2012 History of Past illness Narrative* Problem Noted Date Resolved Date Supervision of normal 10/05/2011 02/15/2012 Cervical polyp 10/05/2011 01/06/2015 Overview: RR- caused first trimester bleeding. No bleeding recently Previous section 07/13/20112011 Supervision of normal first 02/27/2007 10/27/2007 documented as of this encounter (statuses as of 01/03/2022) [address]20-2012 History of Past illness Narrative* Problem Noted Date Resolved Date Supervision of normal 10/05/2011 02/15/2012 Cervical polyp 10/05/2011 01/06/2015 Overview: RR- caused first trimester bleeding. No bleeding recently Previous section 07/13/20112011 Supervision of normal first 02/27/2007 10/27/2007 documented as of this encounter (statuses as of 01/05/2022) [address]20-2012 History of Past illness Narrative* Problem Noted Date Resolved Date Supervision of normal 10/05/2011 02/15/2012 Cervical polyp 10/05/2011 01/06/2015 Overview: RR- caused first trimester bleeding. No bleeding recently Previous section 07/13/20112011 Supervision of normal first 02/27/2007 10/27/2007 documented as of this encounter (statuses as of 01/05/2022) [address]20-2012 History of Past illness Narrative* Problem Noted Date Resolved Date Supervision of normal 10/05/2011 02/15/2012 Cervical polyp 10/05/2011 01/06/2015 Overview: RR- caused first trimester bleeding. No bleeding recently Previous section 07/13/20112011 Supervision of normal first 02/27/2007 10/27/2007 documented as of this encounter (statuses as of 01/24/2022) [address]20-2012 History of Past illness Narrative* Problem Noted Date Resolved Date Supervision of normal 10/05/2011 02/15/2012 Cervical polyp 10/05/2011 01/06/2015 Overview: RR- caused first trimester bleeding. No bleeding recently Previous section 07/13/20112011 Supervision of normal first 02/27/2007 10/27/2007 documented as of this encounter (statuses as of 02/12/2022) [facility] Diagnosis Encounter for gynecological examination with abnormal finding- Primary Routine gynecological examination Pain of left breast [facility]- Primary Abnormal mammogram, unspecified [facility] Diagnosis Abnormal [facility]- Primary Abnormal mammogram, unspecified [facility] Diagnosis Abnormal [facility]ogram Abnormal mammogram, unspecified [facility] Abnormal [facility]ogram- Primary Abnormal mammogram, unspecified [facility] Diagnosis Abnormal finding on breast imaging- Primary Other (abnormal) findings on radiological examination of breast documented in this encounter [facility]* Name Dates Details Patient Instructions Indication:BMI 29.0-29.9,adult Start:13-Jun-2021 Instruction Type:Provider Instructions for Treatment How to Access Health Informa tion Online using Patient Portal and [employer] Apps Indication:BMI 29.0-29.9,adult Start:13-Jun-2021 Instruction Type:Patient Education Patient Instructions Indication:Nonsmoker Start:12-Jun-2021 Instruction Type:Provider Instructions for Treatment How to Access Health Informa tion Online using Patient Portal and [employer] Apps Indication:Nonsmoker Start:12-Jun-2021 Instruction Type:Patient Education How to access health informa tion online Indication:Nonsmoker Start:22-Oct-2018 Instruction Type:Patient Education How to access health informa tion online - Detail Indication:Nonsmoker Start:22-Oct-2018 Instruction Type:Patient Education Patient Instructions Indication:Nonsmoker Start:22-Oct-2018 Instruction Type:Provider Instructions for Treatment How to access health informa tion online Indication:Wellness examination Start:23-Apr-2017 Instruction Type:Patient Education How to access health informa tion online - Detail Indication:Wellness examination Start:23-Apr-2017 Instruction Type:Patient Education Patient Instructions Indication:Wellness examination Start:23-Apr-2017 Instruction Type:Provider Instructions for Treatment How to access health informa tion online Indication:Wellness examination Start:07-Dec-2015 Instruction Type:Patient Education How to access health informa tion online - Detail Indication:Wellness examination Start:07-Dec-2015 Instruction Type:Patient Education Patient Instructions Indication:Wellness examination Start:07-Dec-2015 Instruction Type:Provider Instructions for Treatment [facility]; [facility] Work Phone: reason for referral (narrative)* Diagnostic Procedure Only (Routine) - Authorized Specialty Diagnoses / Procedures Referred By Contac t Referred To Contact [facility] Diagnoses Pain of left breast Procedures KATHERINE DIAGNOSTIC BILAT DIAGNOSTIC MAMMOGRAPHY COMPUTER-AIDED DETCJ Sonya Mcdonald APRN.[employer] [address] [place] [address] [facility] [address] [facility] [place] [address] Referral ID Status Reason Start Date Expiration Date Visits Requested Visits Authorized [id number] Authorized Auto-Generat ed Referral 11/17/2021 12/17/2022 1 1 * Diagnostic Procedure Only (Routine) - Authorized Specialty Diagnoses / Procedures Referred By Dilciaac t Referred To Contact [facility] Diagnoses Pain of left breast Procedures US BREAST LTD LT US BREAST UNI REAL TIME WITH IMAGE LIMITED Sonya Sequeira APRN.CNP [address] [place] [address] [facility] Imaging [address] [place] [address] Referral ID Status Reason Start Date Expiration Date Visits Requested Visits Authorized [id number] Authorized Auto-Generat ed Referral 11/17/2021 12/17/2022 1 1 [facility] for referral (narrative)* Diagnostic Procedure Only (Routine) - Authorized Specialty Diagnoses / Procedures Referred By Tre t Referred To Contact [facility] Diagnoses Abnormal mammogram Procedures US BREAST LTD RT US BREAST UNI REAL TIME WITH IMAGE LIMITED Chintan Toledo MD [address] [place] [place] [address] Br Imaging [address] [place] [address] Referral ID Status Reason Start Date Expiration Date Visits Requested Visits Authorized [id number] Authorized Auto-Generat ed Referral 01/02/2022 02/01/2023 1 1 * Diagnostic Procedure Only (Routine) - Closed Specialty Diagnoses / Procedures [facility] Diagnoses Abnormal mammogram Procedures KATHERINE DIAGNOSTIC RT DIAGNOSTIC MAMMOGRAPHY COMPUTER-AIDED DETCJ UNI Chintan Toledo MD [address] [place] [address] Br Imaging [address] [place] [address] Referral ID Status Reason Start Date Expiration Date V isits Requested Visits Authorized [id number] Closed Auto-Generate d Referral 01/01/2022 01/31/2023 1 1 [facility] for referral (narrative)* Diagnostic Procedure Only (Routine) - Closed Specialty Diagnoses / Procedures Referred By Contac t Referred To Contact [facility] Diagnoses Abnormal mammogram Procedures KATHERINE DIAGNOSTIC RT DIAGNOSTIC MAMMOGRAPHY COMPUTER-AIDED DETCJ UNI Chintan Toledo MD [address] [place] [address] [facility] Imaging [address] [place] [address] Referral ID Status Reason Start Date Expiration Date V isits Requested Visits Authorized [id number] Closed Auto-Generate d Referral 01/01/2022 01/31/2023 1 1 T [facility] for referral (narrative)* Diagnostic Procedure Only (Routine) - Authorized Specialty Diagnoses / Procedures Referred By Contac t Referred To Contact [facility] Diagnoses Abnormal mammogram Procedures KATHERINE STEREO BX BREAST RT BX BREAST W/DEVICE 1ST LESION STEREOTACTIC GUID Chintan Toledo MD [address] [place] [address] Br Imaging [address] [place] [address] Referral ID Status Reason Start Date Expiration Date Visits Requested Visits Authorized [id number] Authorized Auto-Generat ed Referral 01/05/2022 02/04/2023 1 1 T [facility] for referral (narrative)* Diagnostic Procedure Only (Routine) - Pending Review Specialty Diagnoses / Procedures Referred By Contac t Referred To Contact [facility] Diagnoses Abnormal finding on breast imaging Procedures KATHERINE STEREO BX BREAST RT BX BREAST W/DEVICE 1ST LESION STEREOTACTIC Ashlyn Watson MD [address] [place] [address] [facility] Imaging [address] [place] [address] Referral ID Status Reason Start Date Expiration Date Visits Requested Visits Authorized [id number] Pending Review Auto-Generat ed Referral 01/24/2022 02/23/2023 1 1 [facility] for visit Narrative* Diagnostic Procedure Only (Routine) - Closed Specialty Diagnoses / Procedures Referred By Contac t Referred To Contact [facility] Diagnoses Abnormal mammogram Procedures KATHERINE DIAGNOSTIC RT DIAGNOSTIC MAMMOGRAPHY COMPUTER-AIDED DETCJ Chintan Hernandez MD [address] [place] [address] Br Imaging [address] [place] [address] Referral ID Status Reason Start Date Expiration Date V isits Requested Visits Authorized [id number] Closed Auto-Generate d Referral 01/01/2022 01/31/2023 1 1 [facility] Summary Purpose Family History No Family History Records FoundUnknown Family Member Name Dates Details Father Comments:alcoholism Status:Active Mother Comments:hypertension,kidney stones Status:Active Unknown Family Member Name Dates Details Father Comments:alcoholism Status:Active Mother Comments:hypertension,kidney stones Status:Active Unknown Family Member Name Dates Details Father Comments:alcoholism Status:Active Mother Comments:hypertension,kidney stones Status:Active Advance Directives No Advanced Directives Records FoundNo Advanced Directives Records Found Instructions Name Dates Details How to access health informa tion online Indication:Nonsmoker Start:22-Oct-2018 Instruction Type:Patient Education How to access health informa tion online - Detail Indication:Nonsmoker Start:22-Oct-2018 Instruction Type:Patient Education Patient Instructions Indication:Nonsmoker Start:22-Oct-2018 Instruction Type:Provider Instructions for Treatment How to access health informa tion online Indication:Wellness examination Start:23-Apr-2017 Instruction Type:Patient Education How to access health informa tion online - Detail Indication:Wellness examination Start:23-Apr-2017 Instruction Type:Patient Education Patient Instructions Indication:Wellness examination Start:23-Apr-2017 Instruction Type:Provider Instructions for Treatment How to access health informa tion online Indication:Wellness examination Start:07-Dec-2015 Instruction Type:Patient Education How to access health informa tion online - Detail Indication:Wellness examination Start:07-Dec-2015 Instruction Type:Patient Education Patient Instructions Indication:Wellness examination Start:07-Dec-2015 Instruction Type:Provider Instructions for Treatment Name Dates Details How to access health informa tion online Indication:Nonsmoker Start:22-Oct-2018 Instruction Type:Patient Education How to access health informa tion online - Detail Indication:Nonsmoker Start:22-Oct-2018 Instruction Type:Patient Education Patient Instructions Indication:Nonsmoker Start:22-Oct-2018 Instruction Type:Provider Instructions for Treatment How to access health informa tion online Indication:Wellness examination Start:23-Apr-2017 Instruction Type:Patient Education How to access health informa tion online - Detail Indication:Wellness examination Start:23-Apr-2017 Instruction Type:Patient Education Patient Instructions Indication:Wellness examination Start:23-Apr-2017 Instruction Type:Provider Instructions for Treatment How to access health informa tion online Indication:Wellness examination Start:07-Dec-2015 Instruction Type:Patient Education How to access health informa tion online - Detail Indication:Wellness examination Start:07-Dec-2015 Instruction Type:Patient Education Patient Instructions Indication:Wellness examination Start:07-Dec-2015 Instruction Type:Provider Instructions for Treatment Additional Source Comments INFORMATION SOURCE (unrecogn ized section and content) DATE CREATED AUTHOR AUTHOR'S ORGANIZ ATION 02/13/2022 [facility] Source Comments (unrecognize d section and content) In the event this informatio n is protected by the Federal Confidentiality of Alcohol and Drug Abuse Patient Records regulations: The Federal rules restrict any use of the information to criminally investigate or prosecute any alcohol or drug abuse patient.[facility] the event this information is protected by the Federal Confidentiality of Alcohol and Drug Abuse Patient Records regulations: The Federal rules restrict any use of the information to criminally investigate or prosecute any alcohol or drug abuse patient.[facility] the event this information is protected by the Federal Confidentiality of Alcohol and Drug Abuse Patient Records regulations: The Federal rules restrict any use of the information to criminally investigate or prosecute any alcohol or drug abuse patient.[facility] the event this information is protected by the Federal Confidentiality of Alcohol and Drug Abuse Patient Records regulations: The Federal rules restrict any use of the information to criminally investigate or prosecute any alcohol or drug abuse patient.[facility] the event this information is protected by the Federal Confidentiality of Alcohol and Drug Abuse Patient Records regulations: The Federal rules restrict any use of the information to criminally investigate or prosecute any alcohol or drug abuse patient.[facility] the event this information is protected by the Federal Confidentiality of Alcohol and Drug Abuse Patient Records regulations: The Federal rules restrict any use of the information to criminally investigate or prosecute any alcohol or drug abuse patient.[facility] the event this information is protected by the Federal Confidentiality of Alcohol and Drug Abuse Patient Records regulations: The Federal rules restrict any use of the information to criminally investigate or prosecute any alcohol or drug abuse patient.[facility] the event this information is protected by the Federal Confidentiality of Alcohol and Drug Abuse Patient Records regulations: The Federal rules restrict any use of the information to criminally investigate or prosecute any alcohol or drug abuse patient.[facility] the event this information is protected by the Federal Confidentiality of Alcohol and Drug Abuse Patient Records regulations: The Federal rules restrict any use of the information to criminally investigate or prosecute any alcohol or drug abuse patient.[facility] the event this information is protected by the Federal Confidentiality of Alcohol and Drug Abuse Patient Records regulations: The Federal rules restrict any use of the information to criminally investigate or prosecute any alcohol or drug abuse patient.[facility] Reason for Visit (unrecogniz ed section and content) Reason Comments Radiology Mammogram Specialty Diagnoses / Procedures Referred By Contac t Referred To Contact [facility] Diagnoses Pain of left breast Procedures KATHERINE DIAGNOSTIC BILAT DIAGNOSTIC MAMMOGRAPHY COMPUTER-AIDED DETCJ BI Sonya Sequeira, [place].[employer]ACHINE [employer]ER [address] [place] [address] Br Imaging [address] [place] [address] Referral ID Status Reason Start Date Expiration Date V isits Requested Visits Authorized [id number] Closed Auto-Generate d Referral 11/17/2021 12/17/2022 1 1 Reason Comments Radiology US Reason Comments Consult Right Breast Reason Comments Procedure biopsy of right [place] [facility] Reason Comments Scheduling patient to be schedu led for stereotactic right breast biopsy Reason Comments Follow Up right breast, Ultras ound, possible biopsy Reason Comments Results FOR RECORDS PERTAINING TO PATIENTS WHO ARE OR HAVE BEEN ENROLLED IN A CHEMICAL DEPENDENCY/SUBSTANCEABUSE PROGRAM, SOME INFORMATION MAY BE OMITTED. This clinical summary was aggregated from multiple sources. Caution should be exercised in using it in the provision of clinical care. This summary normalizes information from multiple sources, and as a consequence, information in this document may materially change the coding, format and clinical context of patient data. In addition, data may be omitted in some cases. CLINICAL DECISIONS SHOULD BE BASED ON THE PRIMARY CLINICAL RECORDS. [employer] [facility]. provides no warranty or guarantee of the accuracy or completeness of information in this document.
== END | disposition home or self-care (01) ==
PROVIDERS: PCP Internal Medicine; Referring Provider Nurse Practitioner Family; Visit Provider Nurse Practitioner Family
DX: Z12.31 Encounter for screening mammogram for malignant neoplasm of breast (principal)
CPT/HCPCS: 77063; 77067

== ENCOUNTER 2023-08-17 11:34 | Emergency (ER) | payer OTHER, SELFPAY ==
[2023-08-17 11:35] VITALS: BP 132/92; PULSE 73; RESP 14; TEMP 36.8; O2SAT 93; BMI 31.8
--- NOTE | 2023-08-17 11:50 | CT_ITS ---
STUDY: CT PELVIS WITH CONTRAST REASON FOR EXAM: Female, 47 years old. rectal pain Mild subcutaneous edema is seen in the right upper thigh and in the calf. A few reactive mildly enlarged lymph nodes are also seen in the right groin. RADIATION DOSAGE (If Supplied By Facility): CTDIvol = ( 28.21 ) mGy, DLP = ( 998.65 ) mGycm TECHNIQUE: Transaxial imaging of the pelvis was performed without oral contrast. IV 100mL Isovue-370 was administered intravenously. Individualized dose optimization techniques were used for this CT. COMPARISON: None. FINDINGS: Normal urinary bladder. Central IUD. Unremarkable uterus. Normal appearing ovaries. Normal visualized small intestine. Normal visualized colon. Normal appendix. A 3 mm appendicolith is present at the tip of the appendix. No bowel dilatation or evidence of obstruction. No colonic diverticula are present. No visualized bowel masses. No perirectal or perianal edema or abscess is seen. There is no pelvic fluid. There is no pelvic lymphadenopathy or mass lesion. Normal visualized pelvic arteries. Normal abdominal wall. Normal osseous structures. CT/Pelvis WITH IV Contrast IMPRESSION: 1. Normal visualized colon. Normal appendix. A 3 mm appendicolith is present at the tip of the appendix. No bowel dilatation or evidence of obstruction. No colonic diverticula are present. No visualized bowel masses. No perirectal or perianal edema or abscess is seen. Electronically Signed: Hood Salguero MD at 13:48 EST ,
--- NOTE | 2023-08-17 12:01 | EX.ED.DYSGE1 ---
HPI <SLIM Sanz - Last Filed: 08/17/23 13:59> History of Present Illness Chief Complaint: Other, Pain/Inj Narrative Narrative: Patient is a 47-year-old female with history of asthma who presents to the emergency department for rectal pain. Patient states that she has been having rectal pain for many years secondary to hemorrhoids. Over the last 3 to 4 weeks, the patient has had significant pain. Patient is unable to stand, sit for long periods of time. Every time the patient has a bowel movement, the patient is in significant pain. The patient is a regular at baseline, she does have a bowel movement every 3 to 4 days, this is normal for her. Patient bowel movements have not changed, however every time she does have a bowel movement she is significant pain. Denies any nausea or vomiting. Patient did have a fever last week. She has not seen a specialist for this. She is usually able to take care of it with [id number] remedies. PFSH <SLIM Sanz - Last Filed: 08/17/23 13:59> [facility] Medical History no medical history Home Medications oxycodone-acetaminophen 5 mg-325 mg tablet (Percocet) 1 tab PO Q8H PRN pain 3 days #14 tabs 08/17/23 [Rx Last Taken Unknown] polyethylene glycol 3350 17 gram/dose oral powder (ClearLax) 17 g PO DAILY 08/17/23 [History Last Taken Unknown] Allergy/AdvReac Type Severity Reaction Status Date / Time No Known Allergies Allergy Verified 08/17/23 11:35 Surgical History no surgical history Social History Smoking Status: Former smoker ROS <SLIM Sanz - Last Filed: 08/17/23 13:59> ROS ED ROS Narrative Constitutional: Negative for fever, chills, weight loss, weakness Eyes: Negative for vision loss, vision change, double vision ENT: Negative for any sore throat, ear pain, congestion Cardiovascular: Negative for any chest pain, tightness, palpitations Respiratory: Negative for any cough, sputum production, hemoptysis, dyspnea, dyspnea on exertion, orthopnea Gastrointestinal: Negative for any abdominal pain, nausea, vomiting, diarrhea, constipation, blood in stool, blood in vomit. Positive for rectal pain : Negative for any urinary frequency, dysuria, retention, blood in urine Muscle skeletal: Negative for any neck pain, back pain Neurological: Negative for any headache, syncope, dizziness Skin: Negative for any rashes, itching, abrasions, lacerations Psychiatric: Negative for any depression, anxiety, stress, suicidal ideation, homicidal ideation Hematologic: Negative for any excessive bruising, easy bleeding EXAM <SLIM Sanz - Last Filed: 08/17/23 13:59> Physical Exam Narrative Exam Narrative: Vital signs reviewed. HEET: Head normocephalic atraumatic, TMs clear bilaterally. Posterior pharynx is clear, moist mucous membranes. Nares clear bilaterally. Neck: Supple with no lymphadenopathy or tenderness. No signs of meningismus. Cardiac: Regular rate and rhythm no murmurs gallops or rubs, equal peripheral pulses bilaterally. Respiratory: Lungs clear to auscultation bilaterally. No chest tenderness. Abdomen: Soft, nontender, nondistended. No abdominal bruit or pulsatile masses. No hepatosplenomegaly Extremities: No peripheral edema, no signs of gross trauma or deformity. Active full range of motion of all extremities. Neuro: Cranial nerves II through XII intact, no focal neurological deficits. Skin: Clean dry and intact with no rash, purpura, petechiae, vesicles or pustules. Backs/flank: No CVA tenderness, no midline spinal tenderness, no deformity. Psych: Normal mood and affect. No SI, HI or acute psychosis. Rectal: Rectal exam was completed with female nurse workforce development vice president Alona, external inspection, there is no obvious cellulitis, abscess formation, patient had difficulty with any sort of touching on the outer rectum. There is no obvious hemorrhoid. Internal examination, I was only about to get 1 inch of my finger, the patient had significant pain, could not tolerate. I did not feel any significant fissure or hemorrhoid. Const Vital Signs: 08/17/23 11:35 08/17/23 12:17 Temperature 98.2 F Temperature Source Temporal Pulse Rate 73 Respiratory Rate 14 Respiratory Effort Normal Respiratory Pattern Normal Blood Pressure 132/92 H Blood Pressure Mean 105 Pulse Ox 93 Oxygen Delivery Method Room Air <Dr. John Knox MD - Last Filed: 08/17/23 12:21> Physical Exam Const Vital Signs: 08/17/23 11:35 08/17/23 12:17 Temperature 98.2 F Temperature Source Temporal Pulse Rate 73 Respiratory Rate 14 Respiratory Effort Normal Respiratory Pattern Normal Blood Pressure 132/92 H Blood Pressure Mean 105 Pulse Ox 93 Oxygen Delivery Method Room Air [facility] <Deep ClarkSLIM - Last Filed: 08/17/23 13:59> [facility] Lab Data Labs: Laboratory Results - last 24 hr 08/17/23 12:30 WBC 6.7 RBC 3.88 L Hgb 12.1 Hct 37.8 MCV 97.4 MCH 31.2 MCHC 32.0 RDW Std Deviation 47.8 H RDW Coeff of Ashli 13.3 Plt Count 264 MPV 10.0 Immature Gran % (Auto) 0.300 Neut % (Auto) 62.2 Lymph % (Auto) 26.4 Ransom % (Auto) 10.0 Eos % (Auto) 0.4 Baso % (Auto) 0.7 Absolute Neuts (auto) 4.2 Absolute Lymphs (auto) 1.77 Nucleated RBC % 0 Sodium 139 Potassium 3.6 Chloride 112 H Carbon Dioxide 24.0 Anion Gap 3 L BUN 14 Creatinine 0.72 Estim Creat Clear Calc 103.59 Est GFR (MDRD) Af Amer 113 Est GFR (MDRD) Non-Af 93 BUN/Creatinine Ratio 19.6 Glucose 91 Calcium 8.7 Radiography Diagnostic Testing: Clinical Impression(s) from Imaging Studies Pelvis CT 08/17/23 11:50 IMPRESSION: 1. Normal visualized colon. Normal appendix. A 3 mm appendicolith is present at the tip of the appendix. No bowel dilatation or evidence of obstruction. No colonic diverticula are present. No visualized bowel masses. No perirectal or perianal edema or abscess is seen. Electronically Signed: Hood Salguero MD at 13:48 EST Reading Location ID and State: [facility] / [place] , Service support , Treatment and Re-Evaluation :: Differential diagnosis includes however is not limited to: Internal hemorrhoid, external hemorrhoid, rectal abscess, rectal fissure Patient appears to be in no obvious respiratory distress, vital signs are stable, patient looks nontoxic. Patient does have significant pain to the rectal area. Patient had difficulty tolerating any sort of examination. At this time, patient be given IV fluids, Zofran and morphine. Patient was received basic laboratory values, CT scan of the pelvis with IV contrast. Patient be reevaluated. Patient CBC was unremarkable, patient's chemistries was unremarkable. Patient CT scan of the pelvis showed a normal visualized colon, normal appendix. There is a small appendicolith. No bowel dilatation or evidence of obstruction. No colonic diverticula are present. No visualized bowel masses, no perirectal or perianal edema or abscess is seen. At this time, I do believe the patient is stable for discharge. I spoke with the patient at length. The patient does have a colonoscopy scheduled in 3 days. Patient will continue following up, I will provide the patient with enough pain medicine. Patient structured up her MiraLAX. She did have some constipation. Patient was given return precautions. All questions answered, stable for discharge. <Dr. John Knox MD - Last Filed: 08/17/23 12:21> [facility] Narrative Medical decision making narrative: I have personally performed a face to face assessment of the patient and have reviewed the NAZIA Note. I performed a substantive portion of the visit including all aspects of the following. My kennedy findings include: History is 47-year-old female with rectal pain for 2 to 4 weeks. No weight change. She has had loose stools she has not had to strain to have a bowel movement. She thinks she may have had a fever last week but not this week. She has had a history of hemorrhoids. Says currently she cannot control the plane. She has had a small amount of blood. She is scheduled to see GI in [place] next week and may get a colonoscopy next week. Exam is [middle-age female no acute distress sitting upright in bed. Vital signs stable afebrile. HEENT exam unremarkable. Neck nontender. Lungs clear to auscultation. Heart regular rhythm no murmur. Abdomen soft nontender. Normal bowel sounds no peritoneal signs. Moving all 4 extremities. Rectal and anal exam done by ASSISTANT SUPERINTENDENT. She had no external hemorrhoids. Was exquisitely tender on rectal exam.] Medical Decision Making [patient having rectal pain. Currently no fever. CT with IV contrast of the pelvis. Screening labs. Patient will not tolerate anoscopy. She will be given IM morphine for pain and Zofran p.o. Currently there is no IV.] Other additions or changes: [None] History & Record Review Discussion w/independent historian: Patient and Family Additional record(s) reviewed:: Prior inpatient record, Prior outpatient record, Prior ED visit and Prior labs Lab Data Labs: Laboratory Results - last 24 hr 08/17/23 12:30 WBC 6.7 RBC 3.88 L Hgb 12.1 Hct 37.8 MCV 97.4 MCH 31.2 MCHC 32.0 RDW Std Deviation 47.8 H RDW Coeff of Ashli 13.3 Plt Count 264 MPV 10.0 Immature Gran % (Auto) 0.300 Neut % (Auto) 62.2 Lymph % (Auto) 26.4 Ransom % (Auto) 10.0 Eos % (Auto) 0.4 Baso % (Auto) 0.7 Absolute Neuts (auto) 4.2 Absolute Lymphs (auto) 1.77 Nucleated RBC % 0 Sodium 139 Potassium 3.6 Chloride 112 H Carbon Dioxide 24.0 Anion Gap 3 L BUN 14 Creatinine 0.72 Estim Creat Clear Calc 103.59 Est GFR (MDRD) Af Amer 113 Est GFR (MDRD) Non-Af 93 BUN/Creatinine Ratio 19.6 Glucose 91 Calcium 8.7 Radiography Diagnostic Testing: Clinical Impression(s) from Imaging Studies Pelvis CT 08/17/23 11:50 IMPRESSION: 1. Normal visualized colon. Normal appendix. A 3 mm appendicolith is present at the tip of the appendix. No bowel dilatation or evidence of obstruction. No colonic diverticula are present. No visualized bowel masses. No perirectal or perianal edema or abscess is seen. Electronically Signed: Hood Salguero MD at 13:48 EST Reading Location ID and State: [address] [place] [address] , Service support , Discharge Plan Triage Chief Complaint: Other, Pain/Inj ED Midlevel Provider: Deep Clark ED Provider: John Knox Dx/Rx/DC Orders Clinical Impression: Anal or rectal pain Instructions: Anatomy of the Digestive System, Taking Opioid Medicine Prescriptions: New oxycodone-acetaminophen [Percocet] 5-325 mg tablet 1 tab PO Q8H PRN (Reason: pain) 3 Days Qty: 14 0RF No Action polyethylene glycol 3350 [ClearLax] 17 gram/dose powder 17 g PO DAILY Primary Care Provider: Lynsey Hardin Referrals: Fast,Lynsey, DO [Primary Care Provider] - Activity Restrictions/Additional Instructions: You need to increase your MiraLAX to 2-3 times a day, take the Percocet for rest. Do not take Tylenol while taking Percocet as there is Tylenol in Percocet. Keep your appointment on Saturday. Disposition Disposition: Home, Self Care
--- OUTSIDE RECORDS SUMMARY | 2023-08-17 12:19 | XMS RPT_ITS | CCD ---
Author Name Unknown Address [address] [place] [address] Organization [facility] Care Team Providers Care Director Medicare Sales Name Role Phone Bailey Singleton Attending Unavailable Bailey Singleton Referring Unavailable Bailey Singleton Consulting Unavailable Bailey Singleton Unavailable Matt Balderas Unavailable Unavailable Slarb, Bette Unavailable Unavailable Ciesa Bailey MCCRARY E Unavailable Lynn BROKER, Aleida Unavailable Unavailable Matt Meeks LPN Unavailable Unavailable Slarb BROKER, Bette Unavailable Unavailable Unavailable Unavailable Unavailable Primary Care Provider Unavailabl e Allergies Allergy Classification Reported Allergen(s) Allergy Type Date of Onset Reaction(s) Facility (15 sources) Dust; Translations: [Dust] allergy to substance 7 Itching [facility] Work Phone: (10 sources) Cat Propensity to adverse reactions 7 Itching [facility] Work Phone: Medications Current Medications Medication Drug Class(es) Dates Sig (Normalized) Sig (Original) levonorgestrel 0.341172 mg/hr intrauterine system (10 sources) Progestin, Progestin-containi ng Intrauterine Device Start: 11-16-2019 End: 11-14-2024 levonorgestrel (MIRENA) 20 mcg/24 hours (5 yrs) 52 mg IUD Indications: Encounter for IUD insertion 1 Each by INTRAUTERINE route as directed. 1 Each 0 11/16/2019 11/14/2024 Active Completed/Discontinued Medications Medication Drug Class(es) Dates Sig (Normalized) Sig (Original) [id number] 200 actuat albuterol 0.09 mg/actuat metered dose [...] 167.6 cm Chintan Toledo MD Work Phone: [facility] 01-05-2022 09:03-0400 Body temperature 97 [degF] Chintan Toledo MD Work Phone: [facility] 01-05-2022 09:03-0400 Body weight 100.7 kg Chintan Toledo MD Work Phone: [facility] 01-05-2022 09:03-0400 Diastolic blood pressure 76 mm[Hg] Chintan Toledo MD Work Phone: [facility] 01-05-2022 09:03-0400 Heart rate 91 /min Chintan Toledo MD Work Phone: [facility] 01-05-2022 09:03-0400 SaO2% (BldA) [Mass fraction] 100 % Chintan Toledo MD Work Phone: [facility] 01-05-2022 09:03-0400 Systolic blood pressure 104 mm[Hg] Chintan Toledo MD Work Phone: [facility] 12-26-2021 14:22-0400 Body height 167.6 cm Chintan Toledo MD Work Phone: [facility] 12-26-2021 14:22-0400 Body temperature 99.19 [degF] Chintan Toledo MD Work Phone: [facility] 12-26-2021 14:22-0400 Body weight 103.42 kg Chintan Toledo MD Work Phone: [facility] 12-26-2021 14:22-0400 Diastolic blood pressure 80 mm[Hg] Chintan Toledo MD Work Phone: [facility] 12-26-2021 14:22-0400 Heart rate 92 /min Chintan Toledo MD Work Phone: [facility] 12-26-2021 14:22-0400 SaO2% (BldA) [Mass fraction] 100 % Chintan Toledo MD Work Phone: [facility] 12-26-2021 14:22-0400 Systolic blood pressure 121 mm[Hg] Chintan Toledo MD Work Phone: [facility] 11-17-2021 10:02-0400 Body height 167.6 cm Sonya Sequeira APRN.[employer] WORK[employer] Work Phone: [facility] 11-17-2021 10:02-0400 Body weight 100.7 kg Sonya Sequeira APRN.[employer]ILITY WORKER Work Phone: [facility] 11-17-2021 10:02-0400 Diastolic blood pressure 76 mm[Hg] Sonya Sequeira APRN.[employer] UTILITY WORKER Work Phone: [facility] 11-17-2021 10:02-0400 Systolic blood pressure 118 mm[Hg] Sonya Sequeira APRN.[employer] UTILITY WORKER Work Phone: [facility] 06-13-2021 09:36-0500 Body height 168.28 cm Aleida [...] real time with image limited Sonya Sequeira APRN.[employer] WORKER Work Phone: Start: 12-20-2021 End: 12-20-2021 Digital breast tomosynthesis bilateral Sonya Sequeira APRN.[employer] WORKER Work Phone: Start: 06-14-2021 End: 06-14-2021 Virtual Office Visit Comments: See Note; NOTES: [facility] [address] [place] [address] OFFICE VISIT Date of Service: 06/14/21 MR#: [id number] Acct: [id number] Patient: JESSICA RSOALES Rep #: [id number] : 1975 Provider: SLIM gutierrez Age/Sex: 45/F Location: [facility].W Status: Signed Intake Intake Visit [...] received authorization from the FDA to treat fusx-vk-aldaqldr COVID-19 in patients at high risk for [...] with no video. Quality Reporting Tobacco Screening ([facility] 138) Smoking Status: Former smoker Coding Level of Care Code New Pt Level 1 Telephone Patient Type New History Problem Focused Exam Problem Focused Medical Decision Making Straight Forward Diagnoses COVID-19 U07.1 Asthma J45.909 Time Spent (min) 10 Comment 84858 Assessment and Plan Assessment and Plan (1) COVID-19: Status: Acute Plan - Deyanira Odom NP, COMPUTER SYSTEMS TECHNICIAN-C: The patient remains appropriate for the Monoclonal Antibody Infusion. The patient states understanding of this information communicated and wishes to proceed with monoclonal antibody infusion therapy. Patient agrees to receive either balanivimab/etesvimab or casirivimab/imdevimab upon availability. Patient verbalized understanding of education and instructions. Questions and concerns were answered and addressed. (2) Asthma: Status: Acute 06/14/21 1629 <Electronically signed by Deyanira Odom NP COMPUTER SYSTEMS TECHNICIAN-C> Date Deyanira Odom NP COMPUTER SYSTEMS TECHNICIAN-C Cosigner Signature: Date (if applicable) CC: DO Bailey Buitrago [employer] WORKER Work Phone: Start: 11-19-2018 End: 11-19-2018 SCREEN MAMM (CAD) W/ELLEN BILAT Comments: See Note; NOTES: [facility] Imaging Services [address] [place] [id number] SCREEN MAMM (CAD) W/ELLEN BILAT MR#: [id number] Acct: [id number] Name: JESSICA ROSALES Rep #: [id number] : 1975 F 42 From: Anthony Salas MD PCP: Lynsey Hardin DO Status: [facility] Study: SCREEN MAMM (CAD) W/ELLEN BILAT Date of Exam: 11/19/18 Exam# [id number] Ordering Dr: Bailey Singleton NP-Gloria MAMMOGRAPHY - [...] , CC: THERON Singleton; Lynsey Hardin DO Hook Tender: Signed Bailey Singleton [employer] WORK[employer] Work Phone: Section - 2 Matt Balderas Section - 2 Aleida loera LPN Plan of Treatment Date Care Activity Detail Author Start: 07-06-2024 HPV TESTING HPV TESTING [facility] Start: 07-06-2024 PAP TESTING PAP TESTING [facility] Start: 12-20-2022 Mammography MAMMOGRAM [facility] Start: 02-15-2022 Influenza vaccination [facility] Start: 06-13-2021 Procedure Education Eprescribed prescriptions (G8553) [facility] Work Phone: Start: 06-12-2021 Procedure Education Eprescribed prescriptions (G8553) [facility] Work Phone: Start: 06-12-2021 Provider Instructions for Treatment Follow up tomorrow, front desk representative to make virtual with [facility] tomorrow [facility] Work Phone: Start: 06-12-2021 Iaadiadoo influenza 2019 Novel Coronavirus (COVID-19), ANAND (36178) [facility]; [facility] Work Phone: Start: 10-28-2018 Lipid panel LIPID PANEL (09738) [facility] Work Phone: Start: 10-22-2018 Gluc bld gluc mntr dev cleared fda spec home use Blood Glucose , Office (19860) [facility]; [facility] Work Phone: Start: 10-22-2018 Glucose mass conc [facility] Work Phone: Start: 10-22-2018 Hemoglobin A1c/Hemoglobin.total mass fraction (Bld) [facility] Work Phone: Start: 10-22-2018 Hemoglobin glycosylated a1c HgA1C , Office (12054) [facility]; [facility] Work Phone: Start: 10-22-2018 Lipid panel LIPID PANEL (73676) [facility] Work Phone: Start: 10-22-2018 Procedure Education Eprescribed prescriptions (G8553) [facility] Work Phone: Start: 10-22-2018 Provider Instructions for Treatment Follow up as needed [facility] Work Phone: Start: 2017 Mammography MAMMOGRAM [facility] Start: 04-23-2017 Procedure Education Eprescribed prescriptions (G8553) [facility] Work Phone: Start: 04-23-2017 Provider Instructions for Treatment Follow up in 1 year or as needed [facility] Work Phone: Start: 04-23-2017 Comprehensive metabolic panel Metabolic Panel, Comprehensive (92422) [facility] Work Phone: Start: 04-23-2017 Cholesterol mass conc CHOLESTEROL TOTAL, SERUM (16334) [facility] Work Phone: Start: 04-23-2017 Cholesterol serum/whole blood total CHOLESTEROL TOTAL, SERUM (69934) [facility]; [facility] Work Phone: Start: 12-07-2015 Procedure Education Eprescribed prescriptions (G8553) [facility] Work Phone: Start: 12-07-2015 Provider Instructions for Treatment Follow up if no improvement or if symptoms worsen [facility] Work Phone: Start: 12-07-2015 Lipid panel Lipid Panel (42931) [facility] Work Phone: Start: 12-07-2015 Blood count complete auto&auto difrntl wbc CBC, Platelets & Auto Diff (42100) [facility] Work Phone: Start: 12-07-2015 Comprehensive metabolic panel Metabolic Panel, Comprehensive (75675) [facility] Work Phone: Start: 03-16-2008 Skin test tuberculosis intradermal SKIN TEST INTRADERMAL TB (44959) [facility] Work Phone: Payers Date Payer Category Payer Unknown 2020 Unknown MMO MMO [employer] [id number] 2020-Present [phone] [address] [place] [address] PPO [id number] 2016 Unknown [id number] 2008 Private Health Insurance [id number] 1975 Unknown [id number] Unknown [id number] Social History Date Type Detail Facility Alcohol Use [facility] Work Phone: Medical Equipment Procedure Code Equipment Code Equipment Origin al Text Equipment Identifier Dates Stereo Breast Clip [id number] Start : 02-06-2022 Clinical Notes 10-05-2011 to 02-12-2022 Telephone Encounter - Rosio Lepe RN - 02/12/2022 3:48 PM EDTTelephone Encounter - Bailey Leonardo BROKER - 01/05/2022 9:39 AM EDTChintan Toledo MD - 01/05/2022 9:12 AM EDTPatient Instructions Note Date & Type Note Facility 02-12-2022 Miscellaneous Notes Called patient to notify the breast pathology results were benign per Dr. Pollock. Informed patient to continue with annual screening. Patient verbalized understanding. documented in this encounter [facility] 02-06-2022 Note HNO ID: [id number] Author: RT Enrike(R) Service: ? Author Type: Personal Injury Legal Assistant Type: Patient Education Filed: 02/06/2022 11:45 AM Note Text: Patient given post procedure instructions [facility] 01-24-2022 Note HNO ID: [id number] Author: Park Hamilton, [employer] Service: ? Author Type: Personal Injury Legal Assistant Type: Patient Education Filed: 01/24/2022 10:48 AM Note Text: Written post procedure instructions were given to the patient. [facility] 01-05-2022 Note HNO ID: [id number] Author: Chintan Toledo MD Service: ? Author [...] right breast biopsy in the near future. [facility] 01-05-2022 Miscellaneous Notes Spoke to Dr Reid office at [place] to have them call and schedule patient for a stereotactic right breast biopsy documented in this encounter [facility] 01-05-2022 History of Presen t illness Narrative [...] the near future. documented in this encounter [facility] 01-03-2022 Note HNO ID: [id number] Author: RT Roselia(R) Service: ? Author Type: Personal Injury Legal Assistant Type: Progress Notes Filed: 01/03/2022 2:43 PM [...] RT Roselia(R) January 03, 2022 2:43 PM [facility] 01-02-2022 Note HNO ID: [id number] Author: RT Quoc(Horacio) Service: ? Author Type: [...] RT Quoc(R) January 02, 2022 7:55 AM [facility] 01-02-2022 History of Presen t illness Narrative [...] 2022 7:55 AM documented in this encounter [facility] 01-01-2022 Note HNO ID: [id number] Author: Chintan Toledo MD Service: ? Author [...] the procedure well postoperative mammogram was obtained. [facility] 01-01-2022 Note HNO ID: [id number] Author: Bailey Leonardo LPN Service: ? Author [...] Visit completed when applicable. Bailey Leonardo LPN [facility] 01-01-2022 Instructions Bailey Leonardo LPN - 01/01/2022 4:13 PM EDT The following instructions are important for you related to your office visit today with the [facility] General Surgeons. Instructions After OFFICE BASED [...] you should contact our office immediately @ [phone] and ask to be transferred to the General Surgery department. documented in this encounter [facility] 01-01-2022 History of Presen t illness Narrative [...] Bailey Leonardo LPN documented in this encounter [facility] 12-26-2021 Note HNO ID: [id number] Author: Chintan Toledo MD Service: ? Author Type: Physician Type: Progress Notes Filed: 12/26/2021 2:42 PM Note Text: HISTORY AND PHYSICAL - BREAST COMPLAINT Jessica Tanner 1975 REFERRING PHYSICIAN: Sonya Sequeira APRN.[employer] WORKER CHIEF COMPLAINT: Abnormal mammogram (primary encounter diagnosis) [...] entered by the nurse and reviewed by ca Nursing Notes: Carri Syed 12/26/2021 2:27 PM [...] weight 103.4 kg (more content not included)... [facility] 12-26-2021 History of Presen t illness Narrative HISTORY AND PHYSICAL - BREAST COMPLAINT Jessica Tanner 1975 REFERRING PHYSICIAN: Sonya Sequeira APRN.[employer]ILITY WORKER CHIEF COMPLAINT: Abnormal mammogram (primary encounter diagnosis) [...] entered by the nurse and reviewed by ca Nursing Notes: Carri Syed 12/26/2021 2:27 PM [...] Toledo III, MD documented in this encounter [facility] 12-26-2021 Nurse Note REVIEW OF SYSTEMS: General: [...] None Carri Syed documented in this encounter [facility] 12-20-2021 Note HNO ID: [id number] Author: RT Roselia(R) Service: ? Author Type: Personal Injury Legal Assistant Type: Progress Notes Filed: 12/20/2021 3:00 PM [...] RT Roselia(R) December 20, 2021 3:00 PM [facility] 12-20-2021 Note HNO ID: [id number] Author: Jose Hilario Service: ? Author Type: Personal Injury Legal Assistant Type: Progress Notes Filed: 12/20/2021 1:43 PM Note Text: [facility] 12-20-2021 History of Presen t illness Narrative [...] 2021 3:00 PM documented in this encounter [facility] 12-20-2021 History of Presen t illness Narrative documented in this encounter [facility] 11-17-2021 Note HNO ID: [id number] Author: Sonya Sequeira APRN.[employer] WORKER Service: ? Author Type: Nurse Practitioner Type: [...] wire. Thinks last mammogram in 2019 at [facility] and it was normal. Maternal aunt with breast cancer diagnosed age 60. Menses: no menses - Mirena IUD. Contraception: Mirena IUD 11/16/2019 HPV vaccine: No Last Pap: 07/08/2019 normal HPV: 07/08/2019 negative History of abnormal pap: No Last mammogram: 2019 normal [facility] Sexually active: Yes History of STDS: None Patient concerns for STD exposure: No. Time with current partner: 21 years Pain with intercourse: No Postcoital bleeding: No OB History T2 L2 SAB0 IAB0 Ectopic0 Multiple0 Live Births2 Staff Psychologist History LMP: 12/27/2014, IUD Age at Menarche: Age at First : Age at Menopause: Staff Psychologist History Comments: Sexual Activity: Yes; Male Contraception: [...] external genitalia normal, normal Bartholin's glands, urethra, Rocksprings's glands, no vulvar lesions, no cervical lesions, [...] year or sooner as needed Sonya Sequeira APRN.[facility] 11-17-2021 History of Presen t illness Narrative [...] wire. Thinks last mammogram in 2019 at [facility] and it was normal. Maternal aunt with [...] L2 SAB0 IAB0 Ectopic0 Multiple0 Live Births2 Staff Psychologist History LMP: 12/27/2014, IUD Age at Menarche: Age at First : Age at Menopause: Staff Psychologist History Comments: Sexual Activity: Yes; Male Contraception: [...] external genitalia normal, normal Bartholin's glands, urethra, Rocksprings's glands, no vulvar lesions, no cervical lesions, [...] Sonya Sequeira APRN.HERMANN documented in this encounter [facility] documented as of this encounter (statuses as of 11/17/2021) [facility]04-20-2012 History of Past illness Narrative* Problem Noted Date Resolved Date Supervision of normal 10/05/2011 02/15/2012 Cervical polyp 10/05/2011 01/06/2015 Overview: RR- caused first trimester bleeding. No bleeding recently Previous section 07/13/20112011 Supervision of normal first 02/27/2007 10/27/2007 documented as of this encounter (statuses as of 12/21/2021) [facility]04-20-2012 History of Past illness Narrative* Problem Noted Date Resolved Date Supervision of normal 10/05/2011 02/15/2012 Cervical polyp 10/05/2011 01/06/2015 Overview: RR- caused first trimester bleeding. No bleeding recently Previous section 07/13/20112011 Supervision of normal first 02/27/2007 10/27/2007 documented as of this encounter (statuses as of 12/21/2021) [address]20-2012 History of Past illness Narrative* Problem Noted Date Resolved Date Supervision of normal 10/05/2011 02/15/2012 Cervical polyp 10/05/2011 01/06/2015 Overview: RR- caused first trimester bleeding. No bleeding recently Previous section 07/13/20112011 Supervision of normal first 02/27/2007 10/27/2007 documented as of this encounter (statuses as of 12/26/2021) [address]20-2012 History of Past illness Narrative* Problem Noted Date Resolved Date Supervision of normal 10/05/2011 02/15/2012 Cervical polyp 10/05/2011 01/06/2015 Overview: RR- caused first trimester bleeding. No bleeding recently Previous section 07/13/20112011 Supervision of normal first 02/27/2007 10/27/2007 documented as of this encounter (statuses as of 01/02/2022) [address]20-2012 History of Past illness Narrative* Problem Noted Date Resolved Date Supervision of normal 10/05/2011 02/15/2012 Cervical polyp 10/05/2011 01/06/2015 Overview: RR- caused first trimester bleeding. No bleeding recently Previous section 07/13/20112011 Supervision of normal first 02/27/2007 10/27/2007 documented as of this encounter (statuses as of 01/03/2022) [address]20-2012 History of Past illness Narrative* Problem Noted Date Resolved Date Supervision of normal 10/05/2011 02/15/2012 Cervical polyp 10/05/2011 01/06/2015 Overview: RR- caused first trimester bleeding. No bleeding recently Previous section 07/13/20112011 Supervision of normal first 02/27/2007 10/27/2007 documented as of this encounter (statuses as of 01/05/2022) [address]20-2012 History of Past illness Narrative* Problem Noted Date Resolved Date Supervision of normal 10/05/2011 02/15/2012 Cervical polyp 10/05/2011 01/06/2015 Overview: RR- caused first trimester bleeding. No bleeding recently Previous section 07/13/20112011 Supervision of normal first 02/27/2007 10/27/2007 documented as of this encounter (statuses as of 01/05/2022) [address]20-2012 History of Past illness Narrative* Problem Noted Date Resolved Date Supervision of normal 10/05/2011 02/15/2012 Cervical polyp 10/05/2011 01/06/2015 Overview: RR- caused first trimester bleeding. No bleeding recently Previous section 07/13/20112011 Supervision of normal first 02/27/2007 10/27/2007 documented as of this encounter (statuses as of 01/24/2022) [address]20-2012 History of Past illness Narrative* Problem Noted Date Resolved Date Supervision of normal 10/05/2011 02/15/2012 Cervical polyp 10/05/2011 01/06/2015 Overview: RR- caused first trimester bleeding. No bleeding recently Previous section 07/13/20112011 Supervision of normal first 02/27/2007 10/27/2007 documented as of this encounter (statuses as of 02/12/2022) [facility] Diagnosis Encounter for gynecological examination with abnormal finding- Primary Routine gynecological examination Pain of left breast M[facility]odynia [facility] Pain of left breast [...] Abnormal mammogram, unspecified [facility] Diagnosis Abnormal finding on breast imaging- Primary Other (abnormal) findings on radiological examination of breast documented in this encounter [facility]* Name Dates Details Patient Instructions Indication:BMI 29.0-29.9,adult Start:13-Jun-2021 Instruction Type:Provider Instructions for Treatment How to Access Health Informa tion Online using Patient Portal and [employer] Apps Indication:BMI 29.0-29.9,adult Start:13-Jun-2021 Instruction Type:Patient Education Patient Instructions Indication:Nonsmoker Start:12-Jun-2021 Instruction Type:Provider Instructions for Treatment How to Access Health Informa tion Online using Patient Portal and [employer] Apps Indication:Nonsmoker Start:12-Jun-2021 Instruction Type:Patient Education How [...] BILAT DIAGNOSTIC MAMMOGRAPHY COMPUTER-AIDED DETCJ Sonya Mcdonald APRN.[employer] UTILITY WORKER [address] [place] [address] [facility] [address] [facility] [place] [address] Referral ID Status Reason Start Date Expiration Date Visits Requested Visits Authorized [id number] Authorized Auto-Generat ed Referral 11/17/2021 12/17/2022 1 1 * Diagnostic Procedure Only (Routine) - Authorized Specialty Diagnoses / Procedures Referred By Dilciaac t Referred To Contact [facility] Diagnoses Pain of left breast Procedures US BREAST LTD LT US BREAST UNI REAL TIME WITH IMAGE LIMITED Sonya Sequeira APRN.CNP [address] [place] [address] [facility] [address] [place] [address] Referral ID Status Reason Start Date Expiration Date Visits Requested Visits Authorized [id number] Authorized Auto-Generat ed Referral 11/17/2021 12/17/2022 1 1 [facility] for referral (narrative)* Diagnostic Procedure Only (Routine) - Authorized Specialty Diagnoses / Procedures Referred By Tre t Referred To Contact [facility] Diagnoses Abnormal mammogram Procedures US BREAST LTD RT US BREAST UNI REAL TIME WITH IMAGE LIMITED Chintan Toledo MD [address] [place] [address] [facility] [address] [place] [address] Referral ID Status Reason Start Date Expiration Date Visits Requested Visits Authorized [id number] Authorized Auto-Generat ed Referral 01/02/2022 02/01/2023 1 1 * Diagnostic Procedure Only (Routine) - Closed Specialty Diagnoses / Procedures [facility]erred To Contact [facility] Diagnoses Abnormal mammogram Procedures KATHERINE DIAGNOSTIC RT DIAGNOSTIC MAMMOGRAPHY COMPUTER-AIDED DETCJ UNI Chintan Toledo MD [address] [place] [address] [facility] [address] [place] [address] Referral ID Status Reason Start Date Expiration Date V isits Requested Visits Authorized [id number] Closed Auto-Generate d Referral 01/01/2022 01/31/2023 1 1 [facility] for referral (narrative)* Diagnostic Procedure Only (Routine) - Closed Specialty Diagnoses / Procedures Referred By Contac t Referred To Contact [facility] Diagnoses Abnormal mammogram Procedures KATHERINE DIAGNOSTIC RT DIAGNOSTIC MAMMOGRAPHY COMPUTER-AIDED DETCJ UNI Chintan Toledo MD [address] [place] [address] [facility] [address] [place] [address] Referral ID Status Reason Start Date Expiration Date V isits Requested Visits Authorized [id number] Closed Auto-Generate d Referral 01/01/2022 01/31/2023 1 1 T [facility] for referral (narrative)* Diagnostic Procedure Only (Routine) - Authorized Specialty Diagnoses / Procedures Referred By Contac t Referred To Contact BR IMAGING Diagnoses Abnormal mammogram Procedures KATHERINE STEREO BX BREAST RT BX BREAST W/DEVICE 1ST [facility]ESION STEREOTACTIC GUID Chintan Toledo MD [address] [place] [address] Br Imaging [address] [place] [address] Referral ID Status Reason Start Date Expiration Date Visits Requested Visits Authorized [id number] Authorized Auto-Generat ed Referral 01/05/2022 02/04/2023 1 1 T [facility] for referral (narrative)* Diagnostic Procedure Only (Routine) - Pending Review Specialty Diagnoses / Procedures Referred By Contac t Referred To Contact BR IMAGING Diagnoses Abnormal finding on breast imaging Procedures KATHERINE STEREO BX BREAST RT BX BREAST W/DEVICE 1ST LESION STEREOTACTIC Ashlyn Watson MD [address] [place] [address] Br Imaging [address] [place] [address] Referral ID Status Reason Start Date Expiration Date Visits Requested Visits Authorized [id number] Pending Review Auto-Generat ed Referral 01/24/2022 02/23/2023 1 1 [facility] for visit Narrative* Diagnostic Procedure Only (Routine) - Closed Specialty Diagnoses / Procedures Referred By Contac t Referred To Contact BR IMAGING Diagnoses Abnormal mammogram Procedures KATHERINE DIAGNOSTIC RT DIAGNOSTIC MAMMOGRAPHY COMPUTER-AIDED DETCJ Chintan Hernandez MD [address] [place] [address] [facility] Imaging [address] [place] [address] Referral ID Status Reason Start Date Expiration Date V isits Requested Visits Authorized [id number] Closed Auto-Generate d Referral 01/01/2022 01/31/2023 1 1 [facility] Summary Purpose Family History No Family History [...] DATE CREATED AUTHOR AUTHOR'S ORGANIZ ATION 02/13/2022 [facility] Source Comments (unrecognize d section and content) In the event this informatio n is protected by the Federal Confidentiality of Alcohol and Drug Abuse Patient Records regulations: The Federal rules restrict any use of the information to criminally investigate or prosecute any alcohol or drug abuse patient.[facility] the event this information is protected by the Federal Confidentiality of Alcohol and Drug Abuse Patient Records regulations: The Federal rules restrict any use of the information to criminally investigate or prosecute any alcohol or drug abuse patient.[facility] the event this information is protected by the Federal Confidentiality of Alcohol and Drug Abuse Patient Records regulations: The Federal rules restrict any use of the information to criminally investigate or prosecute any alcohol or drug abuse patient.[facility] the event this information is protected by the Federal Confidentiality of Alcohol and Drug Abuse Patient Records regulations: The Federal rules restrict any use of the information to criminally investigate or prosecute any alcohol or drug abuse patient.[facility] the event this information is protected by the Federal Confidentiality of Alcohol and Drug Abuse Patient Records regulations: The Federal rules restrict any use of the information to criminally investigate or prosecute any alcohol or drug abuse patient.[facility] the event this information is protected by the Federal Confidentiality of Alcohol and Drug Abuse Patient Records regulations: The Federal rules restrict any use of the information to criminally investigate or prosecute any alcohol or drug abuse patient.[facility] the event this information is protected by the Federal Confidentiality of Alcohol and Drug Abuse Patient Records regulations: The Federal rules restrict any use of the information to criminally investigate or prosecute any alcohol or drug abuse patient.[facility] the event this information is protected by the Federal Confidentiality of Alcohol and Drug Abuse Patient Records regulations: The Federal rules restrict any use of the information to criminally investigate or prosecute any alcohol or drug abuse patient.[facility] the event this information is protected by the Federal Confidentiality of Alcohol and Drug Abuse Patient Records regulations: The Federal rules restrict any use of the information to criminally investigate or prosecute any alcohol or drug abuse patient.[facility] the event this information is protected by the Federal Confidentiality of Alcohol and Drug Abuse Patient Records regulations: The Federal rules restrict any use of the information to criminally investigate or prosecute any alcohol or drug abuse patient.[facility] Reason for Visit (unrecogniz ed section and content) Reason Comments Radiology Mammogram Specialty Diagnoses / Procedures Referred By Contac t Referred To Contact BR IMAGING Diagnoses Pain of left breast Procedures KATHERINE DIAGNOSTIC BILAT DIAGNOSTIC MAMMOGRAPHY COMPUTER-AIDED DETCJ BI Sonya Sequeira, [place] [address] [place] [address] [facility] Imaging [address] [place] [address] Referral ID Status Reason Start Date Expiration Date V isits Requested Visits Authorized [id number] Closed Auto-Generate d Referral 11/17/2021 12/17/2022 1 [...] BE BASED ON THE PRIMARY CLINICAL RECORDS. [facility]. provides no warranty or guarantee of the accuracy or completeness of information in this document.
[2023-08-17] MEDS: morphine 10 MG/ML Syringe IM (12:23)
[2023-08-17] MEDS: Ondansetron ODT 4 MG Tablet PO (12:23)
[2023-08-17 12:42] LABS: Absolute Lymphocyte Count 1.77 X10^3/uL (0.83-4.51); Absolute Neutrophil Count 4.2 X10^3/uL (2.0-7.7); Basophil# 0.05 X10^3/uL; Basophil% 0.7 % (0-1); Eosinophil# 0.03 X10^3/uL; Eosinophils% 0.4 % (0-5); Hematocrit 37.8 % (37-47); Hemoglobin 12.1 g/dL (12.0-15.0); Lymphocyte # 1.77 X10^3/ul (0.83-4.51); Lymphocyte % 26.4 % (19-41); Mean Corpuscular Hgb 31.2 pg (27.0-32.0); Mean Corpuscular Volume 97.4 fL (81-99); Monocyte# 0.67 X10^3/uL; NRBC Flagged by Analyzer 0 % (0-5); Neutrophil # 4.16 X10^3/uL (2.7-7.7); Neutrophil % 62.2 % (47-70); Platelet Count 264 K/mm3 (150-450); RBC Distribution Width CV 13.3 % (11.6-14.6); RBC Distribution Width SD 47.8 fl (35.1-43.9); Red Blood Count 3.88 M/mm3 (4.2-5.4); White Blood Count 6.7 K/mm3 (4.4-11.0)
[2023-08-17 12:55] LABS: Anion Gap 3 (5-15); BUN 14 mg/dL (7-18); BUN/Creat Ratio 19.6 RATIO (10-20); Calcium,Total 8.7 mg/dL (8.5-10.1); Chloride 112 mmol/L (98-107); Creatinine, Serum 0.72 mg/dL (0.55-1.02); EST Glomerular Filtration Rate 93 mL/min (>60); Est Glom Filt Rate - Afr Amer 113 mL/min (>60); Estimated Creatinine Clearance 103.59 ml/min; Glucose 91 mg/dL (74-106); Potassium 3.6 mmol/L (3.5-5.1); Sodium Level 139 mmol/L (136-145)
[2023-08-17] MEDS: 0.9% Normal Saline (1000mL) 1,000 ML 1000 ML IV (13:13)
[2023-08-17] MEDS: Oxycodone/Apap 5/325 Tablet PO (14:14)
[2023-08-17 14:21] VITALS: BP 128/88; PULSE 87; RESP 16; TEMP 36.6; O2SAT 99
== END 2023-08-17 14:22 | disposition home or self-care (01) ==
PROVIDERS: Nurse Practitioner; Emergency Provider Emergency Medicine; PCP Internal Medicine; Visit Provider Emergency Medicine
DX: K62.89 Other specified diseases of anus and rectum (principal); Z87.891 Personal history of nicotine dependence
CPT/HCPCS: 72193; 80048; 85025; 96361; 96372; 96374; 96375; 99283; J7030; Q9967; A4216; J2405

== ENCOUNTER → 2024-10-21 | Outpatient (CLI) | payer OTHER, SELFPAY ==
--- NOTE | 2024-10-21 10:56 | BI_ITS ---
EXAM: SCRN MAMM (CAD)W/ELLEN BILAT DATE: 10/21/2024 CLINICAL HISTORY: F, Age 48 y/o , SCREENING BREAST CANCER RISK ASSESSMENT: Not reported TECHNIQUE: Bilateral screening digital breast tomosynthesis with 2D and 3D images. Computer aided detection. COMPARISON: Prior exam(s) were compared FINDINGS: TISSUE DENSITY: The breast tissue is heterogenously dense, which may obscure small masses. Bilateral Breast Mammographic Findings: No suspicious masses, calcifications or other abnormalities are identified. BI/SCRN MAMM (CAD)W/ELLEN BILAT IMPRESSION: OVERALL FINAL ASSESSMENT: BIRADS 1 NEGATIVE RECOMMENDATION: Routine annual follow-up in 1 Year A letter with findings and recommendations will be mailed to the patient. Reading Location: [id number]
== END | disposition home or self-care (01) ==
PROVIDERS: PCP Nurse Practitioner Family; Referring Provider Nurse Practitioner Family; Visit Provider Nurse Practitioner Family
DX: Z12.31 Encounter for screening mammogram for malignant neoplasm of breast (principal)
CPT/HCPCS: 77063; 77067

== ENCOUNTER 2024-12-24 18:18 | Emergency (ER) | payer OTHER, SELFPAY ==
[2024-12-24] VITALS (13 sets, daily range): BP systolic 105–139; BP diastolic 67–87; PULSE 68–82; RESP 12–23; TEMP 36.2–36.8; O2SAT 95–100; BMI 24.9
[2024-12-24] MEDS: 0.9% Normal Saline (1000mL) 1,000 ML 999 ML IV (20:46)
--- NOTE | 2024-12-24 20:55 | RAD_ITS ---
PROCEDURE: CHEST PA AND LATERAL 12/24/2024 REASON FOR EXAM: SOB TECHNIQUE: CHEST PA AND LATERAL COMPARISON: None. FINDINGS: Lungs/Pleura: Clear. No pneumothorax or pleural effusion. Heart/Mediastinum: Normal in size. Bones/Soft tissues: Within normal limits. RAD/Chest PA and Lateral IMPRESSION: No acute cardiopulmonary disease. Reading Location: [id number]
[2024-12-24 20:58] LABS: Hematocrit 37.7 % (37-47); Hemoglobin 13.3 g/dL (12.0-15.0); Immature Granulocytes Count 0.020 X10^3/uL (0.0-0.0); Mean Corp Hgb Conc 35.3 g/dL (32-36); Mean Corpuscular Volume 95.0 fL (81-99); Mean Platelet Vol. 10.2 fl (6.2-12.0); NRBC Flagged by Analyzer 0 % (0-5); Platelet Count 237 K/mm3 (150-450); RBC Distribution Width CV 12.6 % (11.6-14.6); RBC Distribution Width SD 43.4 fl (35.1-43.9); Red Blood Count 3.97 M/mm3 (4.2-5.4); White Blood Count 7.8 K/mm3 (4.4-11.0)
[2024-12-24 21:36] LABS: Anion Gap 11 (5-15); BUN 15 mg/dL (4-19); BUN/Creat Ratio 21.8 RATIO (10-20); Calcium,Total 9.5 mg/dL (7.6-11.0); Carbon Dioxide 24.5 mmol/L (21.0-32.0); Chloride 102 mmol/L (98-108); Estimated Creatinine Clearance 92.74 ml/min (50-250); Glucose 80 mg/dL (70-99); Potassium 3.8 mmol/L (3.3-5.1)
[2024-12-24 22:09] LABS: Pro- Brain NATRIURETIC PEPTIDE 41 pg/mL (<=450); Troponin T High Sensitivity < 6 ng/L (<=14)
--- NOTE | 2024-12-24 22:22 | EX.ED.DYSGE1 ---
HPI History of Present Illness Chief Complaint: Shortness of Breath Narrative Narrative: Patient is a 49-year-old female with past medical history asthma who presented to the emergency department the chief complaint chest pain. Patient states that around 10 AM this morning she noted that she developed chest pressure and has been persistent/constant since then. 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 She denies any recent travel history denies any history of blood clots denies any smoking history. Patient states that she has done a lot of breathing exercises prior to coming in. States that she tried to walk to help her symptoms and calm down but states that since her symptoms are persistent she came here to be further evaluated. Patient notes that she usually walks a significant mount a distance daily and has not had any difficulty doing so recently no chest pain no shortness of breath with this exercise. [facility] Medical History Asthma Home Medications ?Medication ?Instructions ?Recorded ?Last Taken ?Type polyethylene glycol 3350 17 17 g PO DAILY 08/17/23 Unknown History gram/dose oral powder (ClearLax) multivitamin (Daily Multi-Vitamin 1 tab PO DAILY 12/24/24 Unknown History tablet) Allergy/AdvReac Type Severity Reaction Status Date / Time No Known Allergies Allergy Verified 12/24/24 18:20 Social History Smoking Status: Former smoker ROS ROS ED ROS Narrative Constitutional: Denies any fevers, chills, headaches Cardiovascular: Planes of chest pain as noted above Respiratory: Denies cough or wheezing shortness of breath Abdomen: Denies abdominal pain nausea vomit diarrhea : Has any urinary symptoms Neurological: Denies any numbness, wheeze, tingling Musculoskeletal: Denies any back pain Skin: Denies any rashes or lesions EXAM Physical Exam Narrative Exam Narrative: General: Patient was lying in bed rest comfortably did not appear to be in acute distress Head: Atraumatic, normocephalic Eyes: PERRL bilaterally, EOMI bilateral, no conjunctival injection noted Neck: Soft, supple, trachea midline Cardiovascular: Rate and rhythm no murmurs gallops rubs noted Respiratory: Clear to auscultation bilaterally Abdomen: Soft, nondistended, no tenderness palpation Extremities: 5/5 strength noted in the bilateral upper and lower extremities, radial pulses +2/4 in the bladder extremities, no pedal edema on exam Neurological: Patient following commands knew that she was at [facility] year is 2024 Skin: Warm, dry, intact no rashes or lesions noted Const Vital Signs: 12/24/24 18:19 12/24/24 20:14 12/24/24 20:42 Temperature 97.1 F L Temperature Source Oral Pulse Rate 82 Respiratory Rate 20 H Respiratory Effort Normal Blood Pressure 139/83 H Blood Pressure Mean 101 Pulse Ox 100 Oxygen Delivery Method Room Air Room Air 12/24/24 20:47 Temperature Temperature Source Pulse Rate 70 Respiratory Rate 20 H Respiratory Effort Blood Pressure 124/87 H Blood Pressure Mean 99 Pulse Ox 96 Oxygen Delivery Method Room Air MDM MDM MDM Narrative Medical decision making narrative: Patient is a 49-year-old female who presented to the emergency department with a chief complaint of chest pain. On the differential diagnose includes by limited to ACS, pneumonia, pneumothorax, PE, anxiety. Once workup is obtained and reviewed she will be reevaluated. Patient CBC reviewed and showed no evidence leukocytosis white blood count 7.8, hemoglobin was noted to be 13.3, plate count normal at 237. Patient sodium was 138, potassium normal at 3.8, creatinine normal at 0.70. Patient troponin was normal at less than 6, proBNP normal at 41. Patient's EKG showed sinus rhythm with a rate of 73 bpm. Patient's chest x-ray reviewed by myself and by radiology showed no acute cardiopulmonary processes. On reevaluation the patient she is feeling slightly better however she still has the persistent chest discomfort. Patient's delta troponin is pending and we will add a D-dimer on as well. These will be signed out to overnight provider to follow-up on and make ultimate disposition however pending these are normal she will be discharged home as have low suspicion that this is cardiac in etiology as her pain has been persistent since 10 AM. She was advised to follow-up with her PCP in the outpatient setting as well if she goes home. All question concerns were answered. Lab Data Labs: Laboratory Results - last 24 hr 12/24/24 20:40 WBC 7.8 RBC 3.97 L Hgb 13.3 Hct 37.7 MCV 95.0 MCH 33.5 H MCHC 35.3 RDW Std Deviation 43.4 RDW Coeff of Ashli 12.6 Plt Count 237 MPV 10.2 Immature Gran % (Auto) 0.300 Neut % (Auto) 58.0 Lymph % (Auto) 27.3 [place] % (Auto) 5.5 Eos % (Auto) 7.7 H Baso % (Auto) 1.2 H Absolute Neuts (auto) 4.5 Absolute Lymphs (auto) 2.13 Nucleated RBC % 0 Sodium 138 Potassium 3.8 Chloride 102 Carbon Dioxide 24.5 Anion Gap 11 BUN 15 Creatinine 0.70 Estim Creat Clear Calc 92.74 Est GFR (MDRD) Non-Af 107 BUN/Creatinine Ratio 21.8 H Glucose 80 Calcium 9.5 Troponin T High Sens < 6 NT pro BNP II 41 Radiography Diagnostic Testing: Clinical Impression(s) from Imaging Studies Chest X-Ray 12/24/24 20:55 IMPRESSION: No acute cardiopulmonary disease. Reading Location: [id number] Discharge Plan Triage Chief Complaint: Shortness of Breath ED Provider: Jl Jennings Dx/Rx/DC Orders Clinical Impression: Chest pain Prescriptions: No Action polyethylene glycol 3350 [ClearLax] 17 gram/dose powder 17 g PO DAILY multivitamin [Daily Multi-Vitamin] Tablet 1 tab PO DAILY Primary Care Provider: Meena Khan Referrals: Meena Khan ELECTROMECHANICAL TECHNOLOGIST-C [Primary Care Provider] - Activity Restrictions/Additional Instructions: Follow-up your doctor in outpatient setting. Return with worsening symptoms or any other concerns. Print Language: Malagasy Disposition Disposition: Home, Self Care
[2024-12-24 23:18] LABS: D-Dimer Quantitative (DVT/PE) 0.27 FEU/ug/m (0.27-0.49)
[2024-12-24 23:25] LABS: Troponin T High Sens 2 HR < 6 ng/L (<=14)
== END 2024-12-24 23:45 | disposition home or self-care (01) ==
PROVIDERS: Emergency Provider Emergency Medicine; PCP Nurse Practitioner Family; Visit Provider Emergency Medicine
DX: R06.02 Shortness of breath (principal); Z87.891 Personal history of nicotine dependence; R07.9 Chest pain, unspecified
CPT/HCPCS: 71046; 80048; 83880; 84484; 85025; 85379; 93005; 96360; 96361; 99283; A4216